=== PATIENT | male | born 1950 | race Caucasian/White ===

== ENCOUNTER 2016-06-23 05:41 | Inpatient (IN) | payer OTHER, MEDICARE ==
[2016-06-23] MEDS ORDERED: LIDOCAINE 1% 5 ML SDV ONE (06:11)
[2016-06-23] MEDS ORDERED: BUPIVACAINE/EPI 0.25% 30 ML SDV ONE (06:33)
[2016-06-23] MEDS ORDERED: THROMBIN (RECOMBINANT) 5,000 UNIT VIAL TP ONE ×2 (06:33→09:44)
[2016-06-23] MEDS ORDERED: BUPIVACAINE 0.25% 30 ML SDV ONE (06:33)
[2016-06-23] MEDS ORDERED: BACITRACIN 50,000 UNITS/10 ML SYR IRR ONE (06:34)
[2016-06-23] MEDS ORDERED: PROPOFOL/EMULSION 500 MG/50 ML BOTTLE IV ONE ×2 (06:54→09:29)
[2016-06-23] MEDS ORDERED: fentaNYL 100 MCG/2 ML INJ ONE ×3 (06:54→11:24)
[2016-06-23] MEDS ORDERED: REMIFENTANIL HCL 1 MG VIAL ONE ×2 (06:54→09:29)
[2016-06-23] MEDS ORDERED: KETAMINE 100 MG/10 ML SYR IVP ONE (06:54)
[2016-06-23] MEDS ORDERED: PHENYLEPHRINE HCL 100 MCG/ML SYR ONE (06:58)
[2016-06-23] MEDS ORDERED: SUCCINYLCHOLINE CHLORIDE*ANESTHESIA ONLY*200 MG/10 ML SYR IVP ONE (06:58)
[2016-06-23] MEDS ORDERED: DEXAMETHASONE 10 MG/ML VIAL IVP ONE (07:00)
[2016-06-23] MEDS ORDERED: ceFAZolin 2 GM/DEXTROSE 100 ML IV ONE (07:00)
[2016-06-23] MEDS ORDERED: CITRATE DEXTROSE SOLN 500 ML BAG ONE (07:04)
[2016-06-23] MEDS ORDERED: MIDAZOLAM 2 MG/2 ML VIAL ONE (07:17)
[2016-06-23] MEDS ORDERED: PHENYLEPHRINE 10 MG/ML SDV ONE ×2 (08:16)
[2016-06-23] MEDS ORDERED: morphINE PF 5 MG/10 ML INJ ONE (08:28)
[2016-06-23] MEDS ORDERED: DEXAMETHASONE 4 MG/ML VIAL ONE (08:47)
[2016-06-23] MEDS ORDERED: ONDANSETRON 4 MG/2 ML VIAL ONE ×2 (08:47→11:17)
[2016-06-23] MEDS ORDERED: SKIN ADHESIVE (DERMABOND) 1 EACH TP ONE ×2 (10:09→10:44)
[2016-06-23] MEDS ORDERED: HYDROmorphONE/DILAUDID 2 MG/ML SYR ONE (10:52)
[2016-06-23] MEDS ORDERED: DIAZEPAM 10 MG/2 ML SYR IVP PRN (11:10)
[2016-06-23] MEDS ORDERED: BISACODYL 10 MG SUPP PR PRN (11:10)
[2016-06-23] MEDS ORDERED: NALOXONE HCL 0.4 MG/ML INJ IVP PRN (11:10)
[2016-06-23] MEDS ORDERED: morphINE PCA 30 MG/30 ML PCA IV PRN (11:10)
[2016-06-23] MEDS ORDERED: ONDANSETRON 4 MG/2 ML VIAL IVP PRN (11:10)
[2016-06-23] MEDS ORDERED: diphenhydrAMINE 25 MG CAP PO PRN (11:10)
[2016-06-23] MEDS ORDERED: LACTULOSE 20 GM/30 ML UDCUP PO PRN (11:10)
[2016-06-23] MEDS ORDERED: MAGNESIUM HYDROXIDE 30 ML UDCUP PO PRN (11:10)
[2016-06-23] MEDS ORDERED: MAG HYDROX/AL HYDROX/SIMETH 30 ML UDCUP PO PRN (11:10)
--- NOTE | 2016-06-23 11:10 | POSTOPPROG ---
Post Op Note Date of Operation: 06/23/16 Surgeon: Tucker Andrea Steam Hammer Operator: Nayeli Anesthesiologist: Yashira Anesthesia: GET(General Endotracheal) Pre-op Diagnosis: Arachnoid cyst-lumbar, L4/5 spondylolisthesis Post-op Diagnosis: same Indication: Leg pain, weakness, Procedure: L1-L5 laminectomy with fenestration of arachnoid cyst Findings: arachnoid cyst. L4/5 spondylolisthesis (with minimal instability) Inf/Abcess present in the surg proc area at time of surgery?: No EBL: 100-500 Complications: none Specimen(s): arachnoid matter dural tissue
[2016-06-23] MEDS ORDERED: NS W/ 20 KCl/L 1,000 ML IV SCH (11:15)
[2016-06-23] MEDS ORDERED: FLUTICASONE NASAL 120 SPRAYS/16 GM MDI EACHNARE PRN (11:17)
[2016-06-23] MEDS ORDERED: NITROGLYCERIN 0.4 MG BTL SL PRN (11:17)
--- NOTE | 2016-06-23 11:24 | SOAPPROG ---
SOAP Progress Note Assessment/Plan: POST OP CHECK: Assessment: Doing well after L1-L5 laminectomy and fenestration of arachnoid cyst Plan: HOB flat x 24 hrs CPM in PACU and transfer to floor per protocol 06/23/16 11:22 Subjective: asleep, wakes easily and reports "mild pain" in left lower back Objective: Neuro: PERRLA speech clear EOMI Follows commands x 4 ODONNELL, sens +LT Vitals: BP: 142/83 HR: 87 O2: 97% ICD10 Worksheet Patient Problems: Problems Problem Status Diagnosed Acute coronary syndrome Active Angina Active CAD - Coronary arteriosclerosis Active Placement of stent in coronary artery Active Anginal equivalent Acute
[2016-06-23] MEDS ORDERED: Alirocumab [Praluent Pen] 75 MG SQ SCH (11:30)
[2016-06-23] MEDS ORDERED: PROMETHAZINE HCL 25 MG/ML VIAL ONE (11:32)
[2016-06-23] MEDS ORDERED: HYDROmorphONE/DILAUDID 1 MG/ML SYR ONE (11:32)
--- NOTE | 2016-06-23 12:53 | GOP ---
[f rep st] OPERATIVE REPORT DATE OF OPERATION: 06/23/2016 SURGEON: Tucker Andrea MD BIOMETRICIAN: PATRICIA Lemos ANESTHESIA: General endotracheal. PREOPERATIVE DIAGNOSIS: 1. Large multilevel lumbar arachnoid cyst. 2. Severe spinal stenosis. 3. Progressive neurologic symptoms. 4. Failed conservative care. POSTOPERATIVE DIAGNOSIS: 1. Large multilevel lumbar arachnoid cyst. 2. Severe spinal stenosis. 3. Progressive neurologic symptoms. 4. Failed conservative care. PROCEDURE PERFORMED: L1 through L5 laminectomies for decompression of spinal canal and intrathecal r emoval/fenestration/open biopsy of arachnoid cyst and scar tissue. FINDINGS: ESTIMATED BLOOD LOSS: 100 cc. INDICATIONS: The patient is a 65-year-old man who has a history of very large extensive arachnoid cy st involving his thoracic spine for which he underwent a multilevel thoracolumbar laminectomy and ope n biopsy/fenestration/resection of the cyst. He presented recently with recurrent symptoms after imp roving after the original surgery. He was found to have a large arachnoid cyst and severe spinal judit nosis in the lumbar spine and presents now for laminectomy with open biopsy/resection/fenestration of the arachnoid cyst. DESCRIPTION OF PROCEDURE: After informed consent was obtained, the patient was taken to the operatin g room and placed in the prone position on the Vik frame. The thoracolumbosacral areas were prepp ed and draped in sterile fashion. After fluoroscopic localization of the correct levels, a midline l inear incision was carried from approximately L1 through L5. This was carried down the fascial layer , which was incised using monopolar electrocautery and carried in a subperiosteal plane along the spi nous processes and lamina bilaterally. Intraoperative fluoroscopy was utilized to verify the correct level. Following this, the dissection was carried down slightly more laterally and the L4-5 level w as first evaluated for instability. The spondylolisthesis was noted and it did not appear to be jaya sly unstable. At the patient's request, we decided to not perform the fusion/instrumentation and to continue with the laminectomy which was then performed in a standard fashion using the SourceTour drill system with a massive fluted bur and Kerrison rongeurs along with the straight and angled curettes. There was a fairly significant amount of scar tissue at the upper levels where the prior surgery was performed and this was very meticulously dissected down under high-power microscopy. After careful e xposure of the dura from approximately T12 through L5 with the redo laminectomies up higher at the T1 1-12 area, the dura was then opened centrally and tacked laterally with 4-0 Nurolon sutures. A very thick tubular arachnoid cyst with severe compression of the nerve roots was noted and was carefully o pened using the 11 blade scalpel and this incision in the very thickened tenacious cyst released a la rge amount of high-pressure spinal fluid. This was extended all the way up to the prior fenestration area up in the T11-12 area, and the cyst was widely fenestrated and multiple large pieces resected. After extensively opening up all of the multi lobulated cystic areas, the wound was copiously irriga kwan and meticulous hemostasis was achieved. The dura was then closed with a running 5-0 Prolene sutu re followed by Gelfoam over the suture line. Meticulous hemostasis was achieved and the wound was co piously irrigated with antibiotic irrigation and closed in a layered fashion using interrupted Vicryl sutures followed by Dermabond on the skin. COMPLICATIONS: None. DISPOSITION: The patient was extubated and transferred to the recovery room in stable condition. /[id number]/MODL
[2016-06-23] MEDS ORDERED: METHOCARBAMOL 750 MG TAB ONE (13:56)
[2016-06-23] MEDS ORDERED: OXYCODONE/APAP 5/325 TAB ONE (13:56)
[2016-06-23] MEDS ORDERED: CEFAZOLIN 1 GM/DEXTROSE/50 ML BAG IV ONE (13:56)
[2016-06-23] MEDS: METHOCARBAMOL 750 MG TAB PO PRN (14:32)
[2016-06-23] MEDS: OXYCODONE/APAP 5/325 TAB PO PRN ×3 (14:33→22:00)
--- NOTE | 2016-06-23 15:01 | DX ---
Intraoperative Fluoroscopy of the Lower Lumbar Spine Clinical History: 65-year-old male presenting for lumbar dural cyst removal. Findings: Dr. Tucker Andrea used 4.2 seconds of fluoroscopy time, with an exposure dose of 3.28 mGy. A localizing needle has been placed over the soft tissues posteriorly at the L4-L5 level. The re is advanced degenerative disk space narrowing at L4-L5, with an anterolisthesis. Impression: Intraoperative fluoroscopy of the lower lumbar spine.
[2016-06-23] MEDS: POLYETHYLENE GLYCOL 3350 17 GM PKT PO SCH (18:02)
[2016-06-23] MEDS: morphINE SR 15 MG TAB PO SCH (21:14)
[2016-06-24] MEDS: SENNOSIDES/DOCUSATE SODIUM TAB PO SCH ×3 (00:08→22:09)
[2016-06-24] MEDS: POLYETHYLENE GLYCOL 3350 17 GM PKT PO SCH ×4 (00:08→22:09)
[2016-06-24] MEDS: ONDANSETRON DISINTEGRATING 4 MG TAB PO PRN ×3 (00:12→23:47)
[2016-06-24] MEDS: METHOCARBAMOL 750 MG TAB PO PRN (01:48)
[2016-06-24] MEDS: OXYCODONE/APAP 5/325 TAB PO PRN ×2 (04:50→16:14)
[2016-06-24 05:24] LABS: % IMMATURE GRANULYOCYTES 0.6 % (0.0-1.1); ABSOLUTE IMMATURE GRANULOCYTES 0.07 10^3/uL (0.00-0.10); ADD DIFF? NO; ADD MORPH? NO; ADD SCAN? NO; ATYPICAL LYMPHOCYTE FLAG 0 (0-99); FRAGMENT RBC FLAG 0 (0-99); HEMATOCRIT 43.4 % (40.0-51.0); HEMOGLOBIN 14.9 g/dL (13.7-17.5); LEFT SHIFT FLG 0 (0-99); LIPEMIA HEMOLYSIS FLAG 90 (0-99); MEAN CELL HEMOGLOBIN 32.3 pg (27.9-34.1); MEAN CELL HEMOGLOBIN CONCENTR. 34.3 g/dL (32.4-36.7); MEAN CELL VOLUME 94.1 fL (81.5-99.8); MEAN PLATELET VOLUME 9.1 fL (8.7-11.7); PLATELET CLUMPS FLAG 10 (0-99); PLATELET COUNT 168 10^3/uL (150-400); RED BLOOD CELL COUNT 4.61 10^6/uL (4.40-6.38); RED CELL DISTRIBUTION WIDTH 13.7 % (11.5-15.2)
[2016-06-24 05:40] LABS: ANION GAP 7 mEq/L (8-16); CARBON DIOXIDE 25 mEq/l (22-31); CHLORIDE 107 mEq/L (97-110); GLOMERULAR FILTRATION RATE > 60; GLUCOSE 221 mg/dL (70-100); POTASSIUM 4.7 mEq/L (3.5-5.2); SODIUM 139 mEq/L (134-144)
[2016-06-24] MEDS: ENOXAPARIN 40 MG/0.4 ML SYR SC SCH (07:52)
[2016-06-24] MEDS: PANTOPRAZOLE SODIUM 40 MG TAB PO SCH (07:53)
[2016-06-24] MEDS: morphINE SR 15 MG TAB PO SCH ×3 (07:53→23:47)
[2016-06-24] MEDS: DIAZEPAM 5 MG TAB PO PRN ×2 (07:53→11:56)
[2016-06-24] MEDS: glipiZIDE XL 5 MG TAB PO SCH (09:46)
--- NOTE | 2016-06-24 11:11 | NEUSURGPN ---
Date of Surgery: 06/23/16 Post Op Day: 1 Assessment/Plan: : Assessment: POD #1 Doing well after L1-L5 laminectomy and fenestration of arachnoid cyst HOB flat for 24 hrs from surgery Plan: HOB flat x 24 hrs. DC kc when bed rest restrictions lifted and advance activity as tolerated Ok to Restart Plavix/ASA on POD #3 (Jun 26, 2016) per Dr. Mota Subjective: lying flat in bed, Doing fine, pain well controlled Denies new numbness or tingling Objective: Incision: CDI, no SELMA Neuro: ODONNELL, sens + LT Catheter Insertion Date: 06/23/16 Neurosurgery Physical Exam - Vitals, I&O, Labs I and O 06/23/16 06/24/16 06/25/16 05:59 05:59 05:59 Intake Total 4560 Output Total 2400 Balance 2160 Weight 89.81 kg Intake: Oral (ml) 1600 IV Intake (ml) 1700 IV Infused (ml) 1125 ceFAZolin 2 GM/DEXTROSE 100 100 ml @ 200 mls/hr IV ONCALL ONE Rx#:[id number] ceFAZolin 1 GM/DEXTROSE 100 50 ml @ 200 mls/hr IV Q8H [facility] Rx#:[id number] NS W/ 20 KCl/L 1,000 ml @ 925 75 mls/hr IV CONT [facility] Rx #:[id number] Autologous Blood (ml) 135 Output: Urine (ml) 2200 Catheter 2200 Estimated Blood Loss (ml) 200 Other: Intake Quantity Yes Sufficient Vital Signs Temp Pulse Resp BP Pulse Ox 36.9 C 87 18 108/57 L 95 06/24/16 07:19 06/24/16 07:19 06/24/16 07:19 06/24/16 07:19 06/24/16 07:19 Laboratory Results 06/24/16 04:50 06/24/16 04:50 ICD10 Worksheet Patient Problems: Problems Problem Status Diagnosed Acute coronary syndrome Active Angina Active CAD - Coronary arteriosclerosis Active Placement of stent in coronary artery Active Anginal equivalent Acute
[2016-06-24] MEDS: ACETAMINOPHEN 325 MG TAB PO PRN (22:09)
[2016-06-25] MEDS: OXYCODONE/APAP 5/325 TAB PO PRN ×3 (05:53→14:08)
[2016-06-25] MEDS: glipiZIDE XL 5 MG TAB PO SCH (09:37)
[2016-06-25] MEDS: morphINE SR 15 MG TAB PO SCH ×2 (09:38→20:04)
[2016-06-25] MEDS: SENNOSIDES/DOCUSATE SODIUM TAB PO SCH ×2 (09:38→20:03)
[2016-06-25] MEDS: PANTOPRAZOLE SODIUM 40 MG TAB PO SCH (09:38)
[2016-06-25] MEDS: POLYETHYLENE GLYCOL 3350 17 GM PKT PO SCH ×3 (09:38→20:04)
[2016-06-25] MEDS: ENOXAPARIN 40 MG/0.4 ML SYR SC SCH (09:40)
--- NOTE | 2016-06-25 09:50 | NEUSURGPN ---
Assessment/Plan: Assessment: POD #2 Doing well after L1-L5 laminectomy and fenestration of arachnoid cyst Plan: Optmize pain management PT/OT Monitor incision, if leakage dose not slo down may need to over sew tomorrow Ok to Restart Plavix/ASA on POD #3 (Jun 26, 2016) per Dr. Valdes. Discussed with Dr. Valdes, please notify NS with any change in neuro/motor exam Subjective: low back pain tolerable with mediations. Denies any new leg pain numbness, tingling or weakness. Objective: NAD A&Ox3 MAEx4 5/5 and equla in BUE and BLE. Incision with sanguinous drainage on dressing. Incision flat Catheter Insertion Date: 06/23/16 - Physician Discussed Patient with : Emre Neurosurgery Physical Exam - Vitals, I&O, Labs I and O 06/24/16 06/25/16 06/26/16 05:59 05:59 05:59 Intake Total 4560 1600 Output Total 2400 1175 425 Balance 2160 425 -425 Weight 89.81 kg Intake: Oral (ml) 1600 1600 IV Intake (ml) 1700 IV Infused (ml) 1125 ceFAZolin 2 GM/DEXTROSE 100 100 ml @ 200 mls/hr IV ONCALL ONE Rx#:[id number] ceFAZolin 1 GM/DEXTROSE 100 50 ml @ 200 mls/hr IV Q8H [facility] Rx#:[id number] NS W/ 20 KCl/L 1,000 ml @ 925 75 mls/hr IV CONT [facility] Rx #:[id number] Autologous Blood (ml) 135 Output: Urine (ml) 2200 1175 425 Catheter 2200 550 Urinal 625 425 Estimated Blood Loss (ml) 200 Other: Intake Quantity Yes Yes Sufficient Number of Voids Urinal 2 1 Bladder Scan Volume (ml) Urinal 450 Vital Signs Temp Pulse Resp BP Pulse Ox 37.1 C 90 16 121/70 H 89 L 06/25/16 07:58 06/25/16 07:58 06/25/16 07:58 06/25/16 07:58 06/25/16 07:58 Laboratory Results 06/24/16 04:50 06/24/16 04:50 ICD10 Worksheet Patient Problems: Problems Problem Status Diagnosed Acute coronary syndrome Active Angina Active CAD - Coronary arteriosclerosis Active Placement of stent in coronary artery Active Anginal equivalent Acute
[2016-06-25] MEDS: ONDANSETRON DISINTEGRATING 4 MG TAB PO PRN ×2 (15:09→18:26)
[2016-06-25] MEDS: ACETAMINOPHEN 325 MG TAB PO PRN (20:03)
[2016-06-26] MEDS: ACETAMINOPHEN 325 MG TAB PO PRN (05:59)
[2016-06-26] MEDS: PANTOPRAZOLE SODIUM 40 MG TAB PO SCH (07:44)
[2016-06-26] MEDS: SENNOSIDES/DOCUSATE SODIUM TAB PO SCH ×2 (07:44→20:24)
[2016-06-26] MEDS: glipiZIDE XL 5 MG TAB PO SCH (07:44)
[2016-06-26] MEDS: ENOXAPARIN 40 MG/0.4 ML SYR SC SCH (07:45)
[2016-06-26] MEDS: POLYETHYLENE GLYCOL 3350 17 GM PKT PO SCH ×3 (08:29→20:23)
[2016-06-26] MEDS: morphINE SR 15 MG TAB PO SCH ×2 (08:29→20:23)
--- NOTE | 2016-06-26 09:20 | NEUSURGPN ---
Assessment/Plan: Assessment: POD #3 Doing well after L1-L5 laminectomy and fenestration of arachnoid cyst Plan: - Optmize pain management - he does not want narcotics because it makes him feel sick and only wants tylenol - PT/OT - monitor incision, leakage has stopped overnight - was a lot yesterday but this morning have been dry for about 2.5 hours - nursing to monitor and may need to oversewn tomorrow - restart Plavix/ASA today per Dr. Mota Subjective: low back pain tolerable with medications. Denies any new leg pain numbness, tingling or weakness; feels like "crap" from his pain medications Objective: NAD A&Ox3 MAEx4 5/5 and equal in BUE and BLE. Incision flat and completely dry this morning (dry for about 2.5 hours) with no active leaking and no erythema Urinary Catheter in Place: No Catheter Insertion Date: 06/23/16 Neurosurgery Physical Exam - Vitals, I&O, Labs I and O 06/25/16 06/26/16 06/27/16 05:59 05:59 05:59 Intake Total 1600 1400 Output Total 1175 1425 Balance 425 -25 Intake: Oral (ml) 1600 1400 Output: Urine (ml) 1175 1425 Catheter 550 Urinal 625 875 Toilet 550 Other: Intake Quantity Yes Sufficient Number of Voids Urinal 2 1 Toilet 3 Number of Stools Toilet 0 Bladder Scan Volume (ml) Urinal 450 Vital Signs Temp Pulse Resp BP Pulse Ox 36.5 C 92 15 122/74 H 90 L 06/26/16 07:52 06/26/16 07:52 06/26/16 07:52 06/26/16 07:52 06/26/16 07:52 Laboratory Results 06/24/16 04:50 06/24/16 04:50 ICD10 Worksheet Patient Problems: Problems Problem Status Diagnosed Acute coronary syndrome Active Angina Active CAD - Coronary arteriosclerosis Active Placement of stent in coronary artery Active Anginal equivalent Acute
[2016-06-26] MEDS: OXYCODONE/APAP 5/325 TAB PO PRN ×2 (14:25→20:21)
[2016-06-26] MEDS: CLOPIDOGREL BISULFATE 75 MG TAB PO SCH (15:53)
[2016-06-26] MEDS: ASPIRIN 81 MG CHEWABLE TAB PO SCH (15:53)
[2016-06-27] MEDS: OXYCODONE/APAP 5/325 TAB PO PRN ×4 (01:15→14:04)
[2016-06-27] MEDS: morphINE SR 15 MG TAB PO SCH (08:25)
[2016-06-27] MEDS: POLYETHYLENE GLYCOL 3350 17 GM PKT PO SCH ×2 (08:25→08:45)
[2016-06-27] MEDS: SENNOSIDES/DOCUSATE SODIUM TAB PO SCH (08:31)
[2016-06-27] MEDS: glipiZIDE XL 5 MG TAB PO SCH (08:31)
[2016-06-27] MEDS: ASPIRIN 81 MG CHEWABLE TAB PO SCH (08:31)
[2016-06-27] MEDS: CLOPIDOGREL BISULFATE 75 MG TAB PO SCH (08:31)
[2016-06-27] MEDS: ENOXAPARIN 40 MG/0.4 ML SYR SC SCH (08:32)
[2016-06-27] MEDS: PANTOPRAZOLE SODIUM 40 MG TAB PO SCH (08:37)
[2016-06-27 08:43] VITALS: RESP 16
[2016-06-27] MEDS ORDERED: TESTOSTERONE IM 100 MG/ML SYRINGE IM SCH (09:00)
[2016-06-27] MEDS: ONDANSETRON DISINTEGRATING 4 MG TAB PO PRN (09:52)
--- NOTE | 2016-06-27 10:34 | NEUSURGPN ---
Assessment/Plan: Assessment: POD #4 Doing well after L1-L5 laminectomy and fenestration of arachnoid cyst Plan: - Optimize pain management-doing well with current regiment - PT/OT - monitor incision, dry and clean - On Plavix/ASA per Dr. Mota -Please notify NS with any change in neuro/motor exam Subjective: Bilateral hip ache and some lower incisional pain. Denies any incisional leakage Objective: NAD A&Ox3 MAEx4, 5/5 and equal in BUE and BLE. Incision c/d/i Catheter Insertion Date: 06/23/16 - Physician Discussed Patient with DrLitzy: Lex Neurosurgery Physical Exam - Vitals, I&O, Labs I and O 06/26/16 06/27/16 06/28/16 05:59 05:59 05:59 Intake Total 1400 500 Output Total 1425 850 200 Balance -25 -350 -200 Intake: Oral (ml) 1400 500 Output: Urine (ml) 1425 850 200 Urinal 875 600 200 Toilet 550 250 Other: Number of Voids Urinal 1 Toilet 3 1 Number of Stools Toilet 0 Vital Signs Temp Pulse Resp BP Pulse Ox 36.4 C 106 H 16 139/76 H 91 L 06/27/16 08:41 06/27/16 08:41 06/27/16 08:41 06/27/16 08:41 06/27/16 08:41 Laboratory Results 06/24/16 04:50 06/24/16 04:50 ICD10 Worksheet Patient Problems: Problems Problem Status Diagnosed Acute coronary syndrome Active Angina Active CAD - Coronary arteriosclerosis Active Placement of stent in coronary artery Active Anginal equivalent Acute
[2016-06-27 15:38] VITALS: BP 114/67; PULSE 77; TEMP 98.2; O2SAT 92
== END 2016-06-27 15:44 | disposition home or self-care (01) | DRG 30 ==
LOC: F3N 05:41
PROVIDERS: ADMIT Neurological Surgery; ATTEND Neurological Surgery
PROC: 00BY0ZX Excision of Lumbar Spinal Cord, Open Approach, Diagnostic (ICD-10-PCS; principal; 2016-06-23 07:15)
PROC: 01NB0ZZ Release Lumbar Nerve, Open Approach (ICD-10-PCS; principal; 2016-06-23 07:15)
DX: G96.19 Other disorders of meninges, not elsewhere classified (principal); M43.16 Spondylolisthesis, lumbar region; E11.9 Type 2 diabetes mellitus without complications; I25.10 Atherosclerotic heart disease of native coronary artery without angina pectoris; Z95.5 Presence of coronary angioplasty implant and graft
CPT/HCPCS: 97001-GP; 97003-GO; 97116-GP; 97530-GP; 97535-GO; G8978-GP-CJ; G8979-GP-CI; G8987-GO-CL; G8988-GO-CI; G8989-GO-CI; J0330; J0690; J1071; J1100; J1170; J1650; J2250; J2274; J2370; J2405; J2550; J2704; J3010; J7060

== ENCOUNTER → 2016-08-09 | Outpatient (CLI) | payer OTHER, MEDICARE | LOC: BMCIMAGING 16:41 | PROVIDERS: ATTEND Physician Assistant Surgical | DX: M50.31 Other cervical disc degeneration, high cervical region (principal) ==

== ENCOUNTER → 2016-09-10 | Outpatient (CLI) | payer OTHER, MEDICARE ==
[~2016-09-10] MED LIST: GADOBUTROL 10 ML VIAL IVP ONE
== END ==
LOC: FIMAGING 13:56
PROVIDERS: ATTEND Physical Medicine & Rehabilitation Neuromuscular Medicine
DX: Z98.1 Arthrodesis status (principal); M47.896 Other spondylosis, lumbar region; M43.16 Spondylolisthesis, lumbar region; M53.2X6 Spinal instabilities, lumbar region; M46.96 Unspecified inflammatory spondylopathy, lumbar region
CPT/HCPCS: 72110; 72158; A9585

== ENCOUNTER → 2016-12-30 | Outpatient (CLI) | payer OTHER, MEDICARE ==
[~2016-12-30] MED LIST changes: -GADOBUTROL 10 ML VIAL IVP ONE; +IOPAMIDOL (ISOVUE-300) 100 ML BTL ONE
== END ==
LOC: FIMAGING 13:44
PROVIDERS: ATTEND Family Medicine
DX: K57.30 Diverticulosis of large intestine without perforation or abscess without bleeding (principal); N20.0 Calculus of kidney; N40.0 Benign prostatic hyperplasia without lower urinary tract symptoms
CPT/HCPCS: 74177; Q9967

== ENCOUNTER 2017-01-03 10:21 | Inpatient (IN) | payer OTHER, MEDICARE ==
[~2017-01-03 10:21] MED LIST changes: +BACITRACIN 50,000 UNITS/10 ML SYR IRR ONE; +BUPIVACAINE 0.25% 30 ML SDV ONE; +BUPIVACAINE/EPI 0.25% 30 ML SDV ONE; +CITRATE DEXTROSE SOLN 500 ML BAG ONE; -IOPAMIDOL (ISOVUE-300) 100 ML BTL ONE; +THROMBIN (BOVINE) 20,000 UNIT VIAL TP ONE; +ceFAZolin 2 GM/DEXTROSE 100 ML IV ONE; +fentaNYL 100 MCG/2 ML INJ IT ONE; +morphINE PF 5 MG/10 ML INJ IT ONE
[2017-01-03] MEDS ORDERED: CEFAZOLIN 2 GM/DEXTROSE/100 ML BAG IV ONE (11:43)
[2017-01-03] MEDS ORDERED: fentaNYL 100 MCG/2 ML INJ ONE ×5 (11:51→15:51)
[2017-01-03] MEDS ORDERED: PROPOFOL/EMULSION 500 MG/50 ML BOTTLE IV ONE ×2 (11:51→14:23)
[2017-01-03] MEDS ORDERED: ROCURONIUM 50 MG/5 ML VIAL ONE (11:52)
--- NOTE | 2017-01-03 12:29 | PDANEPAE ---
ANE History of Present Illness L4-5 decompression and fusion ANE Past Medical History - Cardiovascular History Hx Hypertension: No Hx Arrhythmias: No Hx Chest Pain: No Hx Coronary Artery / Peripheral Vascular Disease: Yes Hx CHF / Valvular Disease: No Hx Palpitations: No Cardiovascular History Comment: STENTS X 4 MOST RECENT 12/2013 - Pulmonary History Hx COPD: No Hx Asthma/Reactive Airway Disease: No Hx Recent Upper Respiratory Infection: No Hx Oxygen in Use at Home: No Hx Sleep Apnea: No Sleep Apnea Screening Result - Last Documented: Negative - Neurologic History Hx Cerebrovascular Accident: No Hx Seizures: No Hx Dementia: No Neurologic History Comment: "foggy", some difficulty with short term memory for about 6 months - Endocrine History Hx Diabetes: Yes Endocrine History Comment: NIDDM x 6 years - Renal History Hx Renal Disorders: Yes Renal History Comment: HAS HX OF KIDNEY STONES. CURRENTLY 2 RT KIDNEY CYSTS - Liver History Hx Hepatic Disorders: Yes Hepatic History Comment: HEPATIC STENOSIS - Neurological & Psychiatric Hx Hx Neurological and Psychiatric Disorders: Yes Neurological / Psychiatric History Comment: ANXIETY in past - Cancer History Hx Cancer: No - Congenital Disorder History Hx Congenital Disorders: Yes Congenital History Comment: SPONDOLYOSIS LUMBAR - GI History GERD: no Hx Gastrointestinal Disorders: Yes Gastrointestinal History Comment: ULCER 1976. CYANIDE POISIONING EFECTECTED TOP OF ESOPHAGUS. H.Pylori infection recently - Other Health History Other Health History: THORACIC CYST. BEG CATARACTS - Chronic Pain History Chronic Pain: Yes (THORACIC SPINE) - Surgical History Prior Surgeries: MULTIPLKE LAMINECTOMY 12/2014. VENTRAL HERNIA X3. APPENDECTOMY. IZABELLA. RONA KNEE SCOPE. RT ELBOW ANE Review of Systems - Exercise capacity METS (RN): 4 METS ANE Patient History - Allergies Allergies/Adverse Reactions: levofloxacin [Levofloxacin] Allergy (Severe, Verified 12/23/16 16:58) Other-Enter Comments sertraline [Sertraline] Allergy (Severe, Verified 12/23/16 16:58) Other-Enter Comments Cqwxroo-Doj-Rva Reductase Inhibitor Allergy (Severe, Verified 12/23/16 16:58) Other-Enter Comments ketorolac [Ketorolac] Allergy (Mild, Verified 12/23/16 16:58) Rash clarithromycin [From Biaxin] Allergy (Unknown, Verified 12/23/16 16:58) ropinirole HCl [From Requip] Allergy (Unknown, Verified 12/23/16 16:58) Other-Enter Comments celecoxib [From Celebrex] Allergy (Verified 12/28/16 12:08) Quinolones Allergy (Verified 12/28/16 12:08) HART 2 INHIBITORS Allergy (Unknown, Uncoded 06/19/14 08:33) Other-Enter Comments fluoroquinolones Allergy (Unknown, Uncoded 06/19/14 08:33) - Home Medications Home Medications: Testosterone IM [Testosterone 100mg/ml IM inj (*)] 200 mg IM MO 12/11/14 [Last Taken 06/19/16] glipiZIDE [Glipizide ER] 5 mg PO DAILY 12/11/14 [Last Taken 06/22/16] Nitroglycerin [Nitrostat 0.4 mg (*)] 0.4 mg SL Q5M PRN 03/22/16 [Last Taken ] Aspirin [Aspirin 81mg (*)] 81 mg PO DAILY 05/24/16 [Last Taken 06/13/16] Lansoprazole [Prevacid] 15 mg PO DAILY 05/24/16 [Last Taken 06/22/16] Herbals/Supplements -Info Only 1 ea PO DAILY 12/22/16 [Last Taken Unknown] oxyCODONE/APAP 5/325 [Percocet 5/325 (*)] 1 tab PO DAILY PRN 12/22/16 [Last Taken Unknown] - NPO status NPO Since - Liquids (Date): 01/03/17 NPO Since - Liquids (Time): 02:00 NPO Since - Solids (Date): 01/02/17 NPO Since - Solids (Time): 22:30 - Anes Hx Hx Anesthesia Complications (with details): pt. reports L facial numbness and agitation postop x 1 - Smoking Hx Smoking Status: Never smoked Marijuana use: Yes - Alcohol Use Alcohol Use: None - Family Anes Hx Family Anes Hx: none ANE Labs/Vital Signs - Vital Signs Blood Pressure: 144/74 Heart Rate: 80 Respiratory Rate: 18 O2 Sat (%): 95 Height: 179.07 cm Weight: 86.636 kg ANE Physical Exam - Airway Neck exam: FROM Mallampati Score: Class 3 Mouth exam: normal dental/mouth exam - Pulmonary Pulmonary: clear to auscultation - Cardiovascular Cardiovascular: regular rate and rhythym
[2017-01-03] MEDS ORDERED: MIDAZOLAM 2 MG/2 ML VIAL IVP ONE (12:38)
[2017-01-03] MEDS ORDERED: KETAMINE 100 MG/10 ML SYR ONE (12:51)
[2017-01-03] MEDS ORDERED: BUPIVACAINE/EPI 0.25% 30 ML SDV ONE (13:11)
[2017-01-03] MEDS ORDERED: DEXAMETHASONE 4 MG/ML VIAL ONE ×3 (13:42→13:43)
[2017-01-03] MEDS ORDERED: epHEDrine SULFATE 10 MG/ML SYR ONE (14:27)
[2017-01-03] MEDS ORDERED: morphINE PF 10 MG/10 ML INJ ONE (15:41)
[2017-01-03] MEDS ORDERED: ONDANSETRON 4 MG/2 ML VIAL ONE ×2 (16:03→17:14)
[2017-01-03] MEDS ORDERED: fentaNYL 100 MCG/2 ML INJ IVP PRN (16:13)
[2017-01-03] MEDS ORDERED: NALOXONE HCL 0.4 MG/ML INJ IVP PRN (16:13)
[2017-01-03] MEDS ORDERED: HYDROmorphONE/DILAUDID 1 MG/ML SYR IVP PRN (16:13)
[2017-01-03] MEDS ORDERED: ceFAZolin 1 GM VIAL ONE (16:15)
[2017-01-03] MEDS ORDERED: PROPOFOL 200 MG/20 ML VIAL ONE (16:19)
[2017-01-03] MEDS ORDERED: LACTULOSE 20 GM/30 ML UDCUP PO PRN (16:50)
[2017-01-03] MEDS ORDERED: BISACODYL 10 MG SUPP PR PRN (16:50)
[2017-01-03] MEDS ORDERED: ONDANSETRON DISINTEGRATING 4 MG TAB PO PRN (16:50)
[2017-01-03] MEDS ORDERED: oxyCODONE IR 5 MG TAB PO PRN (16:50)
[2017-01-03] MEDS ORDERED: MAGNESIUM HYDROXIDE 30 ML UDCUP PO PRN (16:50)
[2017-01-03] MEDS ORDERED: METHOCARBAMOL 750 MG TAB PO PRN (16:50)
[2017-01-03] MEDS ORDERED: NITROGLYCERIN 0.4 MG BTL SL PRN (16:57)
--- NOTE | 2017-01-03 17:04 | POSTANESTH ---
Post Anesthetic Evaluation Cardiovascular Status: Similar to Pre-Op Cond Respiratory Status: Normal, Stable Level of Consciousness/Mental Status: Can Participate in Eval Pain Control: Adequate, Prn Tx Ordered Nausea/Vomiting Control: Adequate, Prn Tx Ordered Complications Possibly Related to Anesthesia: None Noted
--- NOTE | 2017-01-03 17:10 | POSTOPPROG ---
Post Op Note Date of Operation: 01/03/17 Surgeon: Tucker Andrea Audio Operator: Nayeli Anesthesiologist: Tejas Sy Anesthesia: GET(General Endotracheal) Pre-op Diagnosis: Lumbar DJD/stenosis/spondylolisthesis L4/5 Post-op Diagnosis: same Indication: stenosis, bilateral leg pain Procedure: L4/5 TLIF Findings: stenosis Inf/Abcess present in the surg proc area at time of surgery?: No EBL: 100-500 Complications: none Drains: Praveen Velarde (to bulb suction)
--- NOTE | 2017-01-03 17:13 | SOAPPROG ---
SOAP Progress Note Assessment/Plan: Assessment: post op check doing well after L4/5 TLIf Plan: CPM in PACU SELMA to bulb suction transfer to floor per protocol 01/03/17 17:10 Subjective: awake, alert, doing well Objective: Vital Signs Temp Pulse Resp BP Pulse Ox 37.8 C 80 18 144/74 H 95 01/03/17 10:39 01/03/17 12:38 01/03/17 12:38 01/03/17 12:38 01/03/17 12:38 Vital BP:131/67 HR: 85 O2:97% Neuro: ODONNELL, sens +LT follows commands ICD10 Worksheet Patient Problems: Problems Problem Status Onset Acute coronary syndrome Active Angina Active CAD - Coronary arteriosclerosis Active Placement of stent in coronary artery Active Anginal equivalent Acute
[2017-01-03] MEDS: ONDANSETRON 4 MG/2 ML VIAL IVP PRN (17:26)
[2017-01-03] MEDS: TRANEXAMIC ACID 650 MG in NS 100 ML IV ONE ×2 (17:30→17:40)
[2017-01-03] MEDS: SENNOSIDES/DOCUSATE SODIUM TAB PO SCH (20:05)
[2017-01-03] MEDS: morphINE SR 15 MG TAB PO SCH (20:05)
[2017-01-03] MEDS: CEFUROXIME 1,500 MG in NS 50 ML IV SCH (20:05)
[2017-01-03] MEDS: FAMOTIDINE 20 MG TAB PO SCH (20:05)
[2017-01-03] MEDS ORDERED: SCOPOLAMINE HYDROBROMIDE 1.5 MG PATCH TD ONE (20:28)
[2017-01-03] MEDS ORDERED: NS 1,000 ML IV SCH (20:30)
[2017-01-03] MEDS: PROMETHAZINE HCL 25 MG/ML INJ IVP PRN (21:28)
[2017-01-03] MEDS: POLYETHYLENE GLYCOL 3350 17 GM PKT PO SCH (21:50)
[2017-01-03] MEDS: CLARITHROMYCIN 500 MG TAB PO SCH (21:50)
[2017-01-03] MEDS: ACETAMINOPHEN 500 MG TAB PO SCH (21:52)
[2017-01-04] MEDS: ONDANSETRON 4 MG/2 ML VIAL IVP PRN (02:16)
--- NOTE | 2017-01-04 03:52 | GOP ---
[f rep st] OPERATIVE REPORT DATE OF OPERATION: 01/03/2017 SURGEON: Tucker Andrea MD NEUROSURGEON: Tucker Andrea MD. CAR CUSTOMIZER: PATRICIA Lemos. ANESTHESIA: General endotracheal. PREOPERATIVE DIAGNOSIS: Severe L4-5 degenerative joint disease and spondylolisthesis with instabili ty. Intractable low back pain and bilateral lower extremity radiculopathy. Failed conservative car e. POSTOPERATIVE DIAGNOSIS: Severe L4-5 degenerative joint disease and spondylolisthesis with instabil ity. Intractable low back pain and bilateral lower extremity radiculopathy. Failed conservative ca re. PROCEDURE PERFORMED: Redo L4-5 laminectomy and bilateral transpedicular decompressions bilaterally with L4-5 posterior nonsegmental (pedicle screw) fixation and posterolateral fusion with local autog raft and bone morphogenic protein. L4-5 posterior/transforaminal lumbar interbody fusion with 2 str uctural PEEK interbody spacers, local autograft and bone morphogenic protein for an L4-5 posterior/t ransforaminal lumbar interbody fusion. Use of intraoperative microscopy, fluoroscopy, and computer volumetric stereotactic navigation with intraoperative neurophysiologic testing. Injection of intra thecal narcotic analgesics and subcutaneous and intramuscular local anesthesia. FINDINGS: ESTIMATED BLOOD LOSS: 250 cc. INDICATIONS: The patient is a 66-year-old man with an extensive past medical and surgical history i ncluding arachnoid cyst causing spinal cord and nerve root compression extending from T4 down to L5 for which he has had extensive laminectomies and fenestration of the cyst. He presents now with int ractable low back pain and bilateral lower extremity radicular symptoms secondary to L4-5 instabilit y and severe lateral recess stenosis with critical neural foraminal impingement at the L4 level. Af ter failing conservative care, he presents now for surgical decompression and stabilization. DESCRIPTION OF PROCEDURE: After informed consent was obtained, the patient was taken to the operati ng room and placed in a prone position on the Praveen table. The lumbosacral area was prepped and d raped in a sterile fashion. After fluoroscopic localization of correct levels, the subcutaneous and intramuscular tissues were infiltrated with local anesthesia. A midline linear incision was then c reated over the L4-5 spinous processes. This was carried down the fascial layer which was incised u sing the monopolar electrocautery and carried in a subperiosteal plane along the spinous processes a nd lamina bilaterally. Intraoperative fluoroscopy was again utilized to verify the correct levels. Note that there were no spinous processes at L4-5 and the spinous processes I am referring to are a t S1. The incision had to be extended slightly inferiorly/caudally and the S1 spinous process was i dentified and the dissection carried down along this normal anatomic landmark and out the lamina and then rostrally into the L4-5 level. There were no normal tissues at the L4-5 level with very hyper trophied arthritic facet joints and severe spinal stenosis which required meticulous dissection and extensive drilling. Because the normal anatomy was so difficult to identify, the O-arm neuronavigat ional system was brought in and 3-D reconstructed images obtained. Using computer volumetric stereo tactic navigation, pedicle screws were placed at L4 and L5 in a standard fashion. Each individual s crew was tested neurophysiologically with monopolar electrostimulation and interpretation of the pot entials by the surgeon. Rods were then placed and secured under distraction, during which time comp lete facetectomies were performed bilaterally. This was necessary in order to adequately decompress the central canal and neural foramina and lateral recesses without causing a CSF leak. The neuro f oramen at L4 were extensively unroofed and decompressed. Following this, a complete diskectomy was performed at the L4-5 level. Preparation of the endplates and placement of 2 structural PEEK interb reji spacers, local autograft and bone morphogenic protein for an L4-5 posterior/transforaminal lumba r interbody fusion. The screw and karen system were then placed in a slight amount of compression to facilitate bony union and to minimize the potential for posterior graft migration. The wound was ag ain copiously irrigated and meticulous hemostasis was achieved. The foramina were reinspected under high-power microscopy in order to adequately insure they were decompressed. 200 mcg of Duramorph a long with 50 mcg of fentanyl were injected intrathecally. The remaining transverse processes were t hen decorticated. The residual local autograft along with bone morphogenic protein were placed out laterally for posterolateral fusion at the L4-5 level. The subcutaneous and intramuscular tissues w ere re-infiltrated with local anesthesia. A drain was placed and the wound was closed in layered fa shion using interrupted Vicryl sutures followed by Steri-Strips on the skin. COMPLICATIONS: None. DISPOSITION: The patient is currently in the process of being repositioned for extubation. /[id number]/MODL
[2017-01-04] MEDS: CEFUROXIME 1,500 MG in NS 50 ML IV SCH (04:02)
[2017-01-04] MEDS: PROMETHAZINE HCL 25 MG/ML INJ IVP PRN (04:06)
[2017-01-04] MEDS: ACETAMINOPHEN 500 MG TAB PO SCH ×3 (04:36→21:15)
[2017-01-04 05:19] LABS: % IMMATURE GRANULYOCYTES 0.7 % (0.0-1.1); ABSOLUTE IMMATURE GRANULOCYTES 0.07 10^3/uL (0.00-0.10); ADD DIFF? NO; ADD MORPH? NO; ADD SCAN? NO; ATYPICAL LYMPHOCYTE FLAG 0 (0-99); FRAGMENT RBC FLAG 0 (0-99); HEMATOCRIT 45.4 % (40.0-51.0); HEMOGLOBIN 14.3 g/dL (13.7-17.5); LEFT SHIFT FLG 10 (0-99); LIPEMIA HEMOLYSIS FLAG 80 (0-99); MEAN CELL HEMOGLOBIN 31.5 pg (27.9-34.1); MEAN CELL HEMOGLOBIN CONCENTR. 31.5 g/dL (32.4-36.7); MEAN PLATELET VOLUME 9.8 fL (8.7-11.7); PLATELET CLUMPS FLAG 40 (0-99); PLATELET COUNT 81 10^3/uL (150-400); RED BLOOD CELL COUNT 4.54 10^6/uL (4.40-6.38); RED CELL DISTRIBUTION WIDTH 14.6 % (11.5-15.2)
[2017-01-04 08:12] LABS: ANION GAP 14 mEq/L (8-16); CALCIUM 8.3 mg/dL (8.5-10.4); CARBON DIOXIDE 11 mEq/l (22-31); CHLORIDE 113 mEq/L (97-110); CREATININE 1.1 mg/dL (0.7-1.3); GLOMERULAR FILTRATION RATE > 60; GLUCOSE 248 mg/dL (70-100); POTASSIUM 5.5 mEq/L (3.5-5.2); SODIUM 138 mEq/L (134-144)
[2017-01-04] MEDS: morphINE SR 15 MG TAB PO SCH ×2 (08:41→21:18)
[2017-01-04] MEDS: FAMOTIDINE 20 MG TAB PO SCH ×2 (08:41→21:18)
[2017-01-04] MEDS: SENNOSIDES/DOCUSATE SODIUM TAB PO SCH ×2 (08:41→21:19)
[2017-01-04] MEDS: POLYETHYLENE GLYCOL 3350 17 GM PKT PO SCH ×3 (08:41→21:19)
[2017-01-04] MEDS: ENOXAPARIN 40 MG/0.4 ML SYR SC SCH (08:41)
[2017-01-04] MEDS: PANTOPRAZOLE SODIUM 40 MG TAB PO SCH (08:41)
[2017-01-04] MEDS: glipiZIDE XL 5 MG TAB PO SCH (08:41)
[2017-01-04] MEDS: CLARITHROMYCIN 500 MG TAB PO SCH ×2 (08:42→21:17)
[2017-01-04] MEDS ORDERED: NON-FORMULARY NEW DRUG (Lansoprazole [Prevacid] 15 MG) PO SCH (09:00)
--- NOTE | 2017-01-04 09:14 | SOAPPROG ---
SOAP Progress Note Assessment/Plan: Assessment: POD #1 sp L4/5 TLIF. Doing well this AM, was nauseated with vomiting overnight - now resolved Pain well controlled SELMA productive no new weakness or tingling Plan: Do not recommend starting his Plavix until his SELMA drain is out. Continue SELMA until further notice. PT/OT today Lumbar Xrays today Continue SELMA drain OK to DC if pain controlled on oral meds, urinating, ambulating. needs LSO prior to Discharge. discussed with Dr. Valdes 01/04/17 09:25 Subjective: awake, alert, pain well controlled. Denies new neurologic symptoms. Objective: Vital Signs Temp Pulse Resp BP Pulse Ox 36.8 C 79 16 106/75 96 01/04/17 07:10 01/04/17 07:10 01/04/17 07:10 01/04/17 07:10 01/04/17 07:10 Laboratory Results 01/04/17 05:13 01/04/17 05:13 01/03/17 01/04/17 01/05/17 05:59 05:59 05:59 Intake Total 2049 Output Total 2360 30 Balance -310 -30 ICD10 Worksheet Patient Problems: Problems Problem Status Onset Acute coronary syndrome Active Angina Active CAD - Coronary arteriosclerosis Active Placement of stent in coronary artery Active Anginal equivalent Acute
[2017-01-04] MEDS: diphenhydrAMINE 25 MG CAP PO PRN ×2 (11:30→21:25)
[2017-01-05] MEDS: ACETAMINOPHEN 500 MG TAB PO SCH ×2 (06:28→06:29)
--- NOTE | 2017-01-05 07:41 | SOAPPROG ---
SOAP Progress Note Assessment/Plan: Assessment: 66 yo M POD #2 L4/5 TLIF Plan: neuro: stable and doing well overall :) PT/OT recheck BMP, hyperkalemia at 5.5 yesterday post op x-rays look great likely dc home today please call with neuro changes discussed with Dr Mota 01/05/17 07:39 Subjective: + surgical back pain, leg pain improving, no weakness. Objective: Vital Signs Temp Pulse Resp BP Pulse Ox 36.8 C 72 16 97/56 L 94 01/05/17 07:17 01/05/17 07:17 01/05/17 07:17 01/05/17 07:17 01/05/17 07:17 Laboratory Results 01/04/17 05:13 01/04/17 01/05/17 01/06/17 05:59 05:59 05:59 Intake Total 2050 2700 Output Total 2360 1870 Balance -310 830 AAOX4, +FC PERRL, EOMI, no facial droop 5/5 + light touch C/D/I ICD10 Worksheet Patient Problems: Problems Problem Status Onset Acute coronary syndrome Active Angina Active CAD - Coronary arteriosclerosis Active Placement of stent in coronary artery Active Anginal equivalent Acute
[2017-01-05 08:21] LABS: ANION GAP 6 mEq/L (8-16); CALCIUM 8.6 mg/dL (8.5-10.4); CARBON DIOXIDE 25 mEq/l (22-31); CHLORIDE 106 mEq/L (97-110); CREATININE 1.2 mg/dL (0.7-1.3); GLOMERULAR FILTRATION RATE > 60; GLUCOSE 166 mg/dL (70-100); POTASSIUM 4.7 mEq/L (3.5-5.2); SODIUM 137 mEq/L (134-144)
[2017-01-05] MEDS: POLYETHYLENE GLYCOL 3350 17 GM PKT PO SCH (08:28)
[2017-01-05] MEDS: CLARITHROMYCIN 500 MG TAB PO SCH (08:28)
[2017-01-05] MEDS: FAMOTIDINE 20 MG TAB PO SCH (08:29)
[2017-01-05] MEDS: PANTOPRAZOLE SODIUM 40 MG TAB PO SCH (08:29)
[2017-01-05] MEDS: glipiZIDE XL 5 MG TAB PO SCH (08:29)
[2017-01-05] MEDS: SENNOSIDES/DOCUSATE SODIUM TAB PO SCH (08:29)
[2017-01-05] MEDS: ENOXAPARIN 40 MG/0.4 ML SYR SC SCH (09:12)
[2017-01-05] MEDS: morphINE SR 15 MG TAB PO SCH (09:13)
[2017-01-05 11:37] VITALS: BP 111/66; PULSE 78; RESP 18; TEMP 98.4; O2SAT 95
[2017-01-06] MEDS ORDERED: PATCH REMOVAL 1 EA PATCH TD SCH (20:28)
[2017-01-09] MEDS ORDERED: TESTOSTERONE IM 100 MG/ML SYRINGE IM SCH (16:57)
== END 2017-01-05 13:43 | disposition home or self-care (01) | DRG 460 ==
LOC: F3N 10:21
PROVIDERS: ADMIT Neurological Surgery; ATTEND Neurological Surgery
PROC: 01NB0ZZ Release Lumbar Nerve, Open Approach (ICD-10-PCS; principal; 2017-01-03 11:45)
PROC: 0SG00AJ Fusion of Lumbar Vertebral Joint with Interbody Fusion Device, Posterior Approach, Anterior Column, Open Approach (ICD-10-PCS; principal; 2017-01-03 11:45)
PROC: 3E0U0GB Introduction of Recombinant Bone Morphogenetic Protein into Joints, Open Approach (ICD-10-PCS; principal; 2017-01-03 11:45)
DX: M43.16 Spondylolisthesis, lumbar region (principal); M47.16 Other spondylosis with myelopathy, lumbar region; E87.5 Hyperkalemia; I25.10 Atherosclerotic heart disease of native coronary artery without angina pectoris; Z95.5 Presence of coronary angioplasty implant and graft
CPT/HCPCS: 97116-GP; 97161-GP; 97165-GO; C1713; G8978-GP-CJ; G8979-GP-CI; G8980-GP-CI; G8987-GO-CI; G8988-GO-CI; G8989-GO-CI; J0690; J0697; J1100; J1650; J2250; J2274; J2405; J2550; J2704; J3010; J7060

== ENCOUNTER → 2017-04-04 | Outpatient (CLI) | payer OTHER, MEDICARE | LOC: FLAB 13:57 | PROVIDERS: ATTEND Physician Assistant Surgical | DX: Z09 Encounter for follow-up examination after completed treatment for conditions other than malignant neoplasm (principal); Z98.1 Arthrodesis status ==

== ENCOUNTER → 2017-04-15 | Outpatient (CLI) | payer OTHER, MEDICARE | LOC: FIMAGING 09:40 | PROVIDERS: ATTEND Neurological Surgery | DX: Z98.890 Other specified postprocedural states (principal); M51.34 Other intervertebral disc degeneration, thoracic region; M48.061 Spinal stenosis, lumbar region without neurogenic claudication ==

== ENCOUNTER 2017-06-10 15:12 | Emergency (ER) | payer OTHER, MEDICARE ==
[2017-06-10 16:18] LABS: COLOR AMBER; LEUKOCYTE ESTERASE,URINE NEGATIVE (NEGATIVE); NITRITE,URINE POSITIVE (NEGATIVE)
[2017-06-10 16:35] LABS: MUCUS 2+ /lpf (NONE-1+)
[2017-06-10] MEDS ORDERED: NS 1,000 ML IV ONE (17:19)
--- NOTE | 2017-06-10 17:49 | EDPHY ---
H & P Stated Complaint: URINATING BLOOD SINCE LAST NIGHT HPI/ROS: Chief complaint: Urinating blood History of present illness: This is a 66-year-old male who presents to the emergency department reporting he is urinating blood. Patient reports he has developed urinary symptoms over the last 3 days. Initially had difficulty initiating urination and a weak stream. Today he noted what he believed was blood in his urine as it has turned a dark reddish color. He does state he has a remote history of urinary tract infection, 20 years ago. His current symptoms feel similar. He does state he started some azo yesterday to treat the urinary symptoms. This was before he noticed blood in his urine. I have asked him about back and flank pain. He states he has pain chronically since a surgery last May on his spine. This remained stable, there has been no changes in his back or flank pain. He does have a history of kidney stones. None of his symptoms currently feel similar. There has been no fever, no nausea , vomiting or diarrhea. Review of systems: A 10 point review of systems was obtained and other than described above was negative - Personal History Current Tetanus/Diphtheria Vaccine: Yes Tetanus Vaccine Date: 2006 - Medical/Surgical History Hx Asthma: No Hx Chronic Respiratory Disease: No Hx Diabetes: Yes Hx Cardiac Disease: Yes Hx Renal Disease: Yes Hx Cirrhosis: No Hx Alcoholism: No Hx HIV/AIDS: No Hx Splenectomy or Spleen Trauma: No Other PMH: PMH: Stents x4, DM II, ventral hernia repair x3, cholecystectomy, knee surgery x2, r elbow, appy, L4 ARACHNOID CYST, LAMINECTOMY TS-L1, kidney stones x 11 - Social History Smoking Status: Never smoked - Physical Exam Exam: General Appearance: Alert, no distress. Eyes: Pupils equal and round no pallor or injection. ENT, Mouth: Mucous membranes moist. Respiratory: There are no retractions, lungs are clear to auscultation. Cardiovascular: Regular rate and rhythm. Gastrointestinal: Abdomen is soft and non tender, no masses, bowel sounds normal. An umbilical hernia is noted, it is easily reducible. Genitourinary: No CVA tenderness Neurological: Alert and oriented. Strength and sensation intact and symmetrical. Skin: Warm and dry, no rashes. Musculoskeletal: Neck is supple non tender. Extremities are symmetrical, full range of motion. Psychiatric: Patient is oriented X 3, there is no agitation. Constitutional: Initial Vital Signs Temperature (C) 36.4 C 06/10/17 15:24 Heart Rate 98 06/10/17 15:24 Respiratory Rate 16 06/10/17 15:24 Blood Pressure 185/95 H 06/10/17 15:24 O2 Sat (%) 94 06/10/17 15:24 O2 Delivery Mode Room Air Allergies/Adverse Reactions: levofloxacin [Levofloxacin] Allergy (Severe, Verified 06/10/17 15:28) Other-Enter Comments sertraline [Sertraline] Allergy (Severe, Verified 06/10/17 15:28) Other-Enter Comments Aoiyftb-Pfb-Kbu Reductase Inhibitor Allergy (Severe, Verified 06/10/17 15:28) Other-Enter Comments ketorolac [Ketorolac] Allergy (Mild, Verified 06/10/17 15:28) Rash ropinirole HCl [From Requip] Allergy (Unknown, Verified 06/10/17 15:28) Other-Enter Comments celecoxib [From Celebrex] Allergy (Verified 06/10/17 15:28) Quinolones Allergy (Verified 06/10/17 15:28) HART 2 INHIBITORS Allergy (Unknown, Uncoded 06/10/17 15:28) Other-Enter Comments fluoroquinolones Allergy (Unknown, Uncoded 06/10/17 15:28) Home Medications: Medication Instructions Recorded Cephalexin [Keflex] 500 mg PO TID 10 Days cap 06/10/17 GLIPIZIDE 06/10/17 Hyacyanine 06/10/17 Plavix 06/10/17 Medical Decision Making Procedures: A rectal exam is performed by myself. Prostate is nontender, not boggy. ED Course/Re-evaluation: Patient is discussed with my secondary supervising physician Dr. Ramirez Benson. Patient presents to the emergency room with urinary symptoms including difficulty initiating stream, weak stream and now with blood in the urine. However blood began after he started azo. Urinalysis is concerning for infection. He is nontoxic. Afebrile and vital signs are stable. He does have chronic back and flank pain and states there are no new signs or symptoms. He has a history of kidney stones and states this does not feel similar. I have discussed pursuing a CT scan with him to rule out nephrolithiasis and other pathology but he has declined. Prostate exam is unremarkable. Likely a urinary tract infection. Given his allergies I have given him IV Rocephin and started him on Keflex. Urine culture is ordered. He is discharged home. Home care is discussed. He is to follow up with his primary care doctor next week for recheck. Strict return precautions are given. The patient voiced understanding and agreement with plan. Differential Diagnosis: Included but not limited to cystitis, prostatitis, pyelonephritis, nephrolithiasis, colitis, diverticulitis - Data Points Laboratory Results: Laboratory Results 06/10/17 19:10 06/10/17 19:10 06/10/17 06/10/17 06/10/17 19:10 19:10 15:40 WBC 5.84 10^3/uL 10^3/uL (3.80-9.50) RBC 5.28 10^6/uL 10^6/uL (4.40-6.38) Hgb 16.8 g/dL g/dL (13.7-17.5) Hct 48.0 % % (40.0-51.0) MCV 90.9 fL fL (81.5-99.8) MCH 31.8 pg pg (27.9-34.1) MCHC 35.0 g/dL g/dL (32.4-36.7) RDW 14.7 % % (11.5-15.2) Plt Count 222 10^3/uL 10^3/uL (150-400) MPV 8.7 fL fL (8.7-11.7) Neut % (Auto) 72.4 % % (39.3-74.2) Lymph % (Auto) 16.1 % % (15.0-45.0) [place] % (Auto) 9.2 % % (4.5-13.0) Eos % (Auto) 0.9 % % (0.6-7.6) Baso % (Auto) 0.5 % % (0.3-1.7) Nucleat RBC Rel Count 0.0 % % (0.0-0.2) Absolute Neuts (auto) 4.23 10^3/uL 10^3/uL (1.70-6.50) Absolute Lymphs (auto) 0.94 10^3/uL L 10^3/uL (1.00-3.00) Absolute Monos (auto) 0.54 10^3/uL 10^3/uL (0.30-0.80) Absolute Eos (auto) 0.05 10^3/uL 10^3/uL (0.03-0.40) Absolute Basos (auto) 0.03 10^3/uL 10^3/uL (0.02-0.10) Absolute Nucleated RBC 0.00 10^3/uL 10^3/uL (0-0.01) Immature Gran % 0.9 % % (0.0-1.1) Immature Gran # 0.05 10^3/uL 10^3/uL (0.00-0.10) Sodium 144 mEq/L mEq/L (134-144) Potassium 4.7 mEq/L mEq/L (3.5-5.2) Chloride 106 mEq/L mEq/L (97-110) Carbon Dioxide 25 mEq/l mEq/l (22-31) Anion Gap 13 mEq/L mEq/L (8-16) BUN 15 mg/dL mg/dL (7-23) Creatinine 1.1 mg/dL mg/dL (0.7-1.3) Estimated GFR > 60 Glucose 101 mg/dL H mg/dL (70-100) Calcium 8.7 mg/dL mg/dL (8.5-10.4) Urine Color [place] Urine Appearance CLEAR Urine pH 5.0 (5.0-7.5) Ur Specific [place] 1.026 (1.002-1.030) Urine Protein NEGATIVE (NEGATIVE) Urine Ketones NEGATIVE (NEGATIVE) Urine Blood NEGATIVE (NEGATIVE) Urine Nitrate POSITIVE H (NEGATIVE) Urine Bilirubin NEGATIVE (NEGATIVE) Urine Urobilinogen 4.0 EU H EU (0.2-1.0) Ur Leukocyte Esterase NEGATIVE (NEGATIVE) Urine RBC 3-5 /hpf H /hpf (0-3) Urine WBC 3-5 /hpf H /hpf (0-3) Ur Epithelial Cells NONE SEEN /lpf /lpf (NONE-1+) Urine Mucus 2+ /lpf H /lpf (NONE-1+) Urine Glucose 1+ H (NEGATIVE) Medications Given: Discontinued Medications Sodium Chloride (Ns) 1,000 mls @ 0 mls/hr IV EDNOW ONE; Wide Open PRN Reason: Protocol Stop: 06/10/17 17:20 Last Admin: 12/16/17 17:30 Dose: 1,000 mls Ceftriaxone Sodium/Dextrose (Rocephin 1 Gm (Premix)) 50 mls @ 100 mls/hr IV EDNOW ONE PRN Reason: Protocol Stop: 06/10/17 19:21 Last Admin: 06/10/17 19:18 Dose: 50 mls Departure - Departure Disposition: Home, Routine, Self-Care Clinical Impression: Urinary tract infection Qualifiers: Urinary tract infection type: site unspecified Hematuria presence: with hematuria Qualified Code(s): N39.0 - Urinary tract infection, site not specified ; R31.9 - Hematuria, unspecified; R31.9 - Hematuria, unspecified Condition: Good Instructions: Cephalexin (By mouth), Urinary Tract Infection in Men (ED) Additional Instructions: Follow-up with your primary care doctor on Monday for recheck without fail Take all antibiotics as prescribed until finished even if feeling better If symptoms worsen or new symptoms develop return to the emergency room for recheck Referrals: Sue Marie MD [Primary Care Provider] - As per Instructions Prescriptions: Cephalexin [Keflex] 500 mg PO TID 10 Days cap
[2017-06-10 19:20] LABS: % IMMATURE GRANULYOCYTES 0.9 % (0.0-1.1); ABSOLUTE IMMATURE GRANULOCYTES 0.05 10^3/uL (0.00-0.10); ADD DIFF? NO; ADD MORPH? NO; ADD SCAN? NO; ATYPICAL LYMPHOCYTE FLAG 0 (0-99); FRAGMENT RBC FLAG 0 (0-99); HEMOGLOBIN 16.8 g/dL (13.7-17.5); LEFT SHIFT FLG 0 (0-99); LIPEMIA HEMOLYSIS FLAG 90 (0-99); MEAN CELL HEMOGLOBIN 31.8 pg (27.9-34.1); MEAN CELL VOLUME 90.9 fL (81.5-99.8); MEAN PLATELET VOLUME 8.7 fL (8.7-11.7); PLATELET CLUMPS FLAG 10 (0-99); PLATELET COUNT 222 10^3/uL (150-400); RED BLOOD CELL COUNT 5.28 10^6/uL (4.40-6.38); RED CELL DISTRIBUTION WIDTH 14.7 % (11.5-15.2)
[2017-06-10 19:31] VITALS: RESP 18
[2017-06-10 19:33] LABS: ANION GAP 13 mEq/L (8-16); CALCIUM 8.7 mg/dL (8.5-10.4); CARBON DIOXIDE 25 mEq/l (22-31); CHLORIDE 106 mEq/L (97-110); CREATININE 1.1 mg/dL (0.7-1.3); GLOMERULAR FILTRATION RATE > 60; GLUCOSE 101 mg/dL (70-100); POTASSIUM 4.7 mEq/L (3.5-5.2); SODIUM 144 mEq/L (134-144)
[2017-06-10 20:04] VITALS: BP 121/65; PULSE 78; TEMP 98.4; O2SAT 96
== END 2017-06-10 20:05 | disposition home or self-care (01) ==
DX: N39.0 Urinary tract infection, site not specified (principal); B96.89 Other specified bacterial agents as the cause of diseases classified elsewhere; E11.9 Type 2 diabetes mellitus without complications; E86.9 Volume depletion, unspecified
CPT/HCPCS: 96361; 96365; 99284; J0696

== ENCOUNTER → 2017-07-05 | Outpatient (CLI) | payer OTHER, MEDICARE ==
[~2017-07-05] MED LIST changes: -BACITRACIN 50,000 UNITS/10 ML SYR IRR ONE; -BUPIVACAINE 0.25% 30 ML SDV ONE; -BUPIVACAINE/EPI 0.25% 30 ML SDV ONE; -CITRATE DEXTROSE SOLN 500 ML BAG ONE; +GADOBUTROL 10 ML VIAL IVP ONE; -THROMBIN (BOVINE) 20,000 UNIT VIAL TP ONE; -ceFAZolin 2 GM/DEXTROSE 100 ML IV ONE; -fentaNYL 100 MCG/2 ML INJ IT ONE; -morphINE PF 5 MG/10 ML INJ IT ONE
== END ==
LOC: FIMAGING 19:48
PROVIDERS: ATTEND Physician Assistant Surgical
DX: R53.1 Weakness (principal); M54.9 Dorsalgia, unspecified; G93.0 Cerebral cysts; Z98.1 Arthrodesis status; Z98.890 Other specified postprocedural states
CPT/HCPCS: 72158; A9585

== ENCOUNTER → 2017-07-07 | Outpatient (CLI) | payer OTHER, MEDICARE | LOC: FIMAGING 16:06 | PROVIDERS: ATTEND Physician Assistant Surgical | DX: G96.19 Other disorders of meninges, not elsewhere classified (principal); M50.320 Other cervical disc degeneration, mid-cervical region, unspecified level; Z98.1 Arthrodesis status ==

== ENCOUNTER → 2017-07-10 | Outpatient (CLI) | payer OTHER, MEDICARE | LOC: FIMAGING 19:40 | PROVIDERS: ATTEND Internal Medicine Rheumatology | DX: M75.92 Shoulder lesion, unspecified, left shoulder (principal); M12.812 Other specific arthropathies, not elsewhere classified, left shoulder ==

== ENCOUNTER 2017-08-29 15:56 | Emergency (ER) | payer OTHER, MEDICARE ==
[2017-08-29] MEDS ORDERED: ONDANSETRON 4 MG/2 ML VIAL ONE (16:57)
[2017-08-29] MEDS ORDERED: NS 1,000 ML IV ONE (16:59)
[2017-08-29] MEDS ORDERED: ONDANSETRON 4 MG/2 ML VIAL IVP ONE (16:59)
--- NOTE | 2017-08-29 17:10 | EDPHY ---
H & P Time Seen by Provider: 08/29/17 16:18 HPI/ROS: HPI Diarrhea, anxiety. 66-year-old male by private vehicle. This patient reports that starting August 24 he started feeling generalized mid lays with nasal and upper airway congestion associated with nausea and then followed by diarrhea. He reports that since August 24 he has had continued intermittent diarrhea and a feeling of fatigue as well as feeling achy. He states that last night he had a panic attack. He has a history of panic attacks. He reports that today he again felt fatigued as well as dehydrated and had another large episode of diarrhea followed by panic attack just prior to coming to the emergency department. He is concerned that his electrolytes are off. He is concerned that he has become dehydrated. He has had influenza vaccination. ROS: Constitutional: No fever, no chills. As above. Eyes: No discharge. No changes in vision. ENT: No sore throat. As above. Respiratory: No cough. No shortness of breath. Cardiac: No chest pain, no palpitations. Gastrointestinal: No abdominal pain, no vomiting, as above. Genitourinary: No hematuria. No dysuria or increased frequency with urination. Musculoskeletal: No back pain. No neck pain. No myalgias or arthralgias. Skin: No rashes. Neurological: No headache. No focal weakness or altered sensation. Past medical history: Coronary artery disease with multiple stents placed, type 2 diabetes, ventral abdominal hernia repair x3, cholecystectomy, kidney stones, anxiety. Social history: Nonsmoker. Here by himself. Denies alcohol. Physical Exam: General Appearance: Alert, pleasant, mildly anxious but no distress. This patient is responding to questions appropriately and in full sentences. This patient appears well-hydrated and well-nourished. Eyes: Pupils equal and round no pallor or injection. No lid edema, erythema or injection. Respiratory: There are no retractions, lungs are clear to auscultation with good air movement bilaterally. Cardiovascular: Regular rate and rhythm. No murmur. Gastrointestinal: Abdomen is soft and nontender, no masses, bowel sounds normal. No focal tenderness at McBurney's point. No Brown sign. Neurological: Motor sensory function is grossly intact. Cranial nerves are normal. Gait is normal. Skin: Warm and dry, no rashes. Musculoskeletal: Neck is supple and nontender. Extremities are symmetrical. All joints range without pain or impingement. Psychiatric: No agitation. No depression. Database: EKG: EKG time is 5:12 p.m.; EKG shows a narrow complex normal sinus rhythm with a ventricular rate of 82. Borderline left axis deviation. The NE, QRS, QT intervals are within normal limits. T-wave inversions noted in lead 3 and AVF. There are no other ST-T wave changes indicative of ischemic or injury pattern. No evidence of right heart strain. This EKG was compared to a prior study from 03/22/2016. No significant changes. Interpreted by me. Imaging: Procedures: Emergency department course: IV was placed. His vital signs were reviewed. Patient is borderline tachycardic, moderately hypertensive. Vital signs otherwise normal. He was started on IV normal saline with 1 L to be given over the next 1-2 hours. He was given 4 mg of IV Zofran for nausea. EKG obtained and reviewed by myself. 6:00 p.m., patient re-evaluated. Napping but easily arousable. Reports feeling much better. Denies any symptoms. I discussed the results of his EKG, blood work. His vital signs were reviewed. Tachycardia has resolved. He feels comfortable going home and I feel he is safe for discharge. Follow-up and return to emergency department precautions have been reviewed with him. All of his questions were answered. He was discharged in good condition. Differential Diagnosis: The differential diagnosis on this patient includes but is not limited to viral syndrome, food-borne illness, anxiety, dehydration. Acute coronary syndrome, serious bacterial infection unlikely. This represents a partial list of diagnoses considered. These considerations are based on history, physical exam , past history, reassessment and diagnostic testing. Smoking Status: Never smoked Constitutional: Initial Vital Signs Temperature (C) 36 C 08/29/17 16:00 Heart Rate 102 H 08/29/17 16:00 Respiratory Rate 18 08/29/17 16:00 Blood Pressure 174/87 H 08/29/17 16:00 O2 Sat (%) 96 08/29/17 16:00 O2 Delivery Mode Room Air Allergies/Adverse Reactions: levofloxacin [Levofloxacin] Allergy (Severe, Verified 08/29/17 16:05) Other-Enter Comments sertraline [Sertraline] Allergy (Severe, Verified 08/29/17 16:05) Other-Enter Comments Dpkcbld-Ydk-Nme Reductase Inhibitor Allergy (Severe, Verified 08/29/17 16:05) Other-Enter Comments ketorolac [Ketorolac] Allergy (Mild, Verified 08/29/17 16:05) Rash ropinirole HCl [From Requip] Allergy (Unknown, Verified 08/29/17 16:05) Other-Enter Comments celecoxib [From Celebrex] Allergy (Verified 08/29/17 16:05) Quinolones Allergy (Verified 08/29/17 16:05) HART 2 INHIBITORS Allergy (Unknown, Uncoded 06/10/17 15:28) Other-Enter Comments fluoroquinolones Allergy (Unknown, Uncoded 06/10/17 15:28) Home Medications: Medication Instructions Recorded GLIPIZIDE 06/10/17 Plavix 06/10/17 ALPRAZolam [Xanax 0.5 MG (*)] 0.5 mg PO 08/29/17 Alfuzosin HCl [Uroxatral] 10 mg PO 08/29/17 Aspirin [Aspirin 325 mg (*)] 325 mg PO DAILY 08/29/17 Hyoscyamine Sulfate [Hyomax-Sr 0.375 mg PO 08/29/17 0.375 mg (*)] Ondansetron Odt [Zofran Odt 4 mg 4 mg PO Q4PRN PRN #10 tab 08/29/17 (*)] Terbinafine HCl [LamISIL 250 MG 250 mg PO 08/29/17 (*)] Medical Decision Making - Data Points Laboratory Results: Laboratory Results 08/29/17 17:06 08/29/17 17:06 08/29/17 08/29/17 17:06 17:06 WBC 5.99 10^3/uL 10^3/uL (3.80-9.50) RBC 5.37 10^6/uL 10^6/uL (4.40-6.38) Hgb 17.2 g/dL g/dL (13.7-17.5) Hct 49.2 % % (40.0-51.0) MCV 91.6 fL fL (81.5-99.8) MCH 32.0 pg pg (27.9-34.1) MCHC 35.0 g/dL g/dL (32.4-36.7) RDW 14.9 % % (11.5-15.2) Plt Count 207 10^3/uL 10^3/uL (150-400) MPV 8.9 fL fL (8.7-11.7) Neut % (Auto) 72.6 % % (39.3-74.2) Lymph % (Auto) 13.9 % L % (15.0-45.0) [place] % (Auto) 11.0 % % (4.5-13.0) Eos % (Auto) 1.3 % % (0.6-7.6) Baso % (Auto) 0.7 % % (0.3-1.7) Nucleat RBC Rel Count 0.0 % % (0.0-0.2) Absolute Neuts (auto) 4.35 10^3/uL 10^3/uL (1.70-6.50) Absolute Lymphs (auto) 0.83 10^3/uL L 10^3/uL (1.00-3.00) Absolute Monos (auto) 0.66 10^3/uL 10^3/uL (0.30-0.80) Absolute Eos (auto) 0.08 10^3/uL 10^3/uL (0.03-0.40) Absolute Basos (auto) 0.04 10^3/uL 10^3/uL (0.02-0.10) Absolute Nucleated RBC 0.00 10^3/uL 10^3/uL (0-0.01) Immature Gran % 0.5 % % (0.0-1.1) Immature Gran # 0.03 10^3/uL 10^3/uL (0.00-0.10) Sodium 141 mEq/L mEq/L (135-145) Potassium 4.8 mEq/L mEq/L (3.5-5.2) Chloride 110 mEq/L mEq/L (97-110) Carbon Dioxide 20 mEq/l L mEq/l (22-31) Anion Gap 11 mEq/L mEq/L (8-16) BUN 15 mg/dL mg/dL (7-23) Creatinine 1.1 mg/dL mg/dL (0.7-1.3) Estimated GFR > 60 Glucose 130 mg/dL H mg/dL (70-100) Calcium 9.6 mg/dL mg/dL (8.5-10.4) Troponin I < 0.012 ng/mL ng/mL (0.000-0.034) Vitamin B12 Pending Medications Given: Discontinued Medications Sodium Chloride (Ns) 1,000 mls @ 0 mls/hr IV EDNOW ONE; Wide Open PRN Reason: Protocol Stop: 08/29/17 17:00 Last Admin: 08/29/17 17:04 Dose: 1,000 mls Ondansetron HCl (Zofran) 4 mg IVP EDNOW ONE Stop: 08/29/17 17:00 Last Admin: 08/29/17 17:04 Dose: 4 mg Departure - Departure Disposition: Home, Routine, Self-Care Clinical Impression: Anxiety, Diarrhea, Dehydration Condition: Good Instructions: Acute Diarrhea (ED) Additional Instructions: Read and follow provided instructions. Follow-up with your primary care physician in 1-2 days for re-evaluation. Your B12 results should be available at the latest by tomorrow morning. Continue taking your medication as prescribed. Take medication as prescribed for nausea. Return to the emergency department for worsening symptoms, vomiting and inability to keep fluids down despite medications, abdominal pain or other serious concerns. Referrals: Sue Marie MD [Primary Care Provider] - As per Instructions Prescriptions: Ondansetron Odt [Zofran Odt 4 mg (*)] 4 mg PO Q4PRN PRN #10 tab PRN Reason: For Nausea & Vomiting
[2017-08-29 17:14] LABS: PLATELET COUNT 207 10^3/uL (150-400)
[2017-08-29 18:30] VITALS: BP 103/63; PULSE 77; RESP 16; TEMP 97.3; O2SAT 92
--- NOTE | 2017-08-30 07:54 | CPEKG ---
Heart Rate: 82 RR Interval: 732 P-R Interval: 144 QRSD Interval: 80 QT Interval: 360 QTC Interval: 421 P [place]ck[place]: 29 QRS [place]: -21 T Wave [place]: -14 EKG Severity - BORDERLINE ECG - EKG Impression: SINUS RHYTHM EKG Impression: BORDERLINE LEFT AXIS DEVIATION EKG Impression: BORDERLINE T ABNORMALITIES, INFERIOR LEADS Electronically Signed By: Jefferson Loving 30-Aug-2017 09:22:56
== END 2017-08-29 18:30 | disposition home or self-care (01) ==
DX: F41.9 Anxiety disorder, unspecified (principal); R19.7 Diarrhea, unspecified; E86.0 Dehydration; E86.9 Volume depletion, unspecified; I25.10 Atherosclerotic heart disease of native coronary artery without angina pectoris; E11.9 Type 2 diabetes mellitus without complications; Z79.82 Long term (current) use of aspirin; Z95.5 Presence of coronary angioplasty implant and graft
CPT/HCPCS: 93005; 96374; 99284; J2405; 82607-90

== ENCOUNTER 2017-09-28 06:44 | Inpatient (IN) | payer OTHER, MEDICARE ==
[2017-09-28] MEDS ORDERED: ceFAZolin 2 GM/SWFI 2 GM/20 ML SYR IVP ONE (06:54)
[2017-09-28] MEDS ORDERED: GABAPENTIN 300 MG CAP PO ONE (06:54)
[2017-09-28] MEDS ORDERED: ACETAMINOPHEN 500 MG TAB PO ONE (06:54)
[2017-09-28] MEDS ORDERED: LIDOCAINE 1% 2 ML INJ ID PRN (07:02)
[2017-09-28] MEDS ORDERED: LR 1,000 ML IV ONE (07:02)
--- NOTE | 2017-09-28 07:07 | PDGENHP ---
History & Physical Chief Complaint: leg heaviness History of Present Illness: hx of arachnoid cyst L3-5 with progressive leg weakness, heaviness Pertinent Past, Social, Family History: DM. CAD Relevant Physical Exam: AAOx4,. PERRL, EOMI. 5/5. + light touch. CTA bilat. RRR Cardiorespiratory Assessment: CTA bilat. RRR
[2017-09-28] MEDS ORDERED: BUPIVACAINE 0.25% 30 ML SDV ONE ×2 (07:15→07:16)
[2017-09-28] MEDS ORDERED: BACITRACIN 50,000 UNITS/10 ML SYR IRR ONE ×2 (07:16→09:55)
[2017-09-28] MEDS ORDERED: THROMBIN (BOVINE) 5,000 UNIT VIAL TP ONE (07:16)
[2017-09-28] MEDS ORDERED: AVITENE POWDER 1 GM JAR TP ONE (07:17)
[2017-09-28] MEDS ORDERED: CHLORHEXIDINE GLUC HIBICLENS 118 ML BTL TP ONE (07:19)
--- NOTE | 2017-09-28 08:13 | PDANEPAE ---
ANE History of Present Illness Arachnoid cyst ANE Past Medical History - Cardiovascular History Hx Hypertension: No Hx Arrhythmias: No Hx Chest Pain: No Hx Coronary Artery / Peripheral Vascular Disease: Yes Hx CHF / Valvular Disease: No Hx Palpitations: No Cardiovascular History Comment: STENTS X 4 MOST RECENT 12/2013. HX - ANGINA - Pulmonary History Hx COPD: No Hx Asthma/Reactive Airway Disease: No Hx Recent Upper Respiratory Infection: No Hx Oxygen in Use at Home: No Hx Sleep Apnea: No Sleep Apnea Screening Result - Last Documented: Negative - Neurologic History Hx Cerebrovascular Accident: No Hx Seizures: No Hx Dementia: No Neurologic History Comment: "foggy", some difficulty with short term memory for about 6 months - Endocrine History Hx Diabetes: Yes Endocrine History Comment: NIDDM x 6 years - GLIPIZIDE - Renal History Hx Renal Disorders: Yes Renal History Comment: HAS HX OF KIDNEY STONES - Liver History Hx Hepatic Disorders: Yes Hepatic History Comment: FATTY LIVER - Neurological & Psychiatric Hx Hx Neurological and Psychiatric Disorders: Yes Neurological / Psychiatric History Comment: ANXIETY ATTACK RECENTLY - Cancer History Hx Cancer: No - Congenital Disorder History Hx Congenital Disorders: Yes Congenital History Comment: SPONDOLYOSIS LUMBAR - GI History Hx Gastrointestinal Disorders: Yes Gastrointestinal History Comment: ULCER 1976 - Other Health History Other Health History: CATARACTS. RECENT ER 08/29 WITH DIARRHEA & DEHYDRATION - Chronic Pain History Chronic Pain: Yes (LEG PAIN & THORACIC SPINE & L SHOULDER) - Surgical History Prior Surgeries: FUSION L4/L5 2017. L1-L5 CYST REMOVAL. MULTIPLE LAMINECTOMY . VENTRAL HERNIA X3. APPENDECTOMY. IZABELLA. RONA KNEE SCOPE. RT ELBOW ANE Review of Systems Review of Systems: - Exercise capacity METS (RN): 3 METS ANE Patient History - Allergies Allergies/Adverse Reactions: levofloxacin [Levofloxacin] Allergy (Severe, Verified 09/28/17 07:09) Other-Enter Comments sertraline [Sertraline] Allergy (Severe, Verified 09/28/17 07:10) Other-Enter Comments Yzkxous-Ksf-Jll Reductase Inhibitor Allergy (Severe, Verified 09/28/17 07:10) Other-Enter Comments ketorolac [Ketorolac] Allergy (Mild, Verified 09/28/17 07:10) Rash ropinirole HCl [From Requip] Allergy (Unknown, Verified 09/28/17 07:10) Other-Enter Comments celecoxib [From Celebrex] Allergy (Verified 09/28/17 07:10) "DID NOT AGREE WITH ME" Quinolones Allergy (Verified 09/28/17 07:10) CONVULSIVE SPASMS HART 2 INHIBITORS Allergy (Unknown, Uncoded 09/28/17 07:10) Other-Enter Comments fluoroquinolones Allergy (Unknown, Uncoded 09/28/17 07:10) CONVULSIVE SPASMS - Home Medications Home Medications: Clopidogrel Bisulfate [Plavix (*)] 75 mg PO HS 06/10/17 [Last Taken 09/20/17] glipiZIDE [Glipizide ER] 10 mg PO HS 06/10/17 [Last Taken 09/27/17 12:00] Terbinafine HCl [LamISIL 250 MG (*)] 250 mg PO HS 08/29/17 [Last Taken 09/28/17 00:00] Aspirin [Aspirin 81mg (*)] 81 mg PO HS 09/06/17 [Last Taken 09/20/17] Cyanocobalamin [Vitamin B12 (*)] 1,000 mcg PO HS 09/06/17 [Last Taken 09/25/17] Lansoprazole [Prevacid] 15 mg PO HS 09/06/17 [Last Taken 09/27/17 12:00] Herbals/Supplements -Info Only 1 ea PO DAILY 09/07/17 [Last Taken Unknown] Tamsulosin HCl [Flomax 0.4 MG (*)] 0.4 mg PO HS 09/28/17 [Last Taken 09/27/17] - Anes Hx Anes Hx: no prior problems - Smoking Hx Smoking Status: Never smoked - Family Anes Hx Family Hx Anesthesia Complications: NEG ANE Labs/Vital Signs - Vital Signs Height: 180.34 cm Weight: 86.183 kg ANE Physical Exam - Airway Neck exam: decreased ROM (Limited by pain in extension) Mallampati Score: Class 1 Mouth exam: normal dental/mouth exam - Pulmonary Pulmonary: clear to auscultation - Cardiovascular Cardiovascular: regular rate and rhythym - ASA Status ASA Status: III ANE Anesthesia Plan Anesthesia Plan: general endotracheal anesthesia
[2017-09-28] MEDS ORDERED: MIDAZOLAM 2 MG/2 ML VIAL IVP ONE (08:22)
[2017-09-28] MEDS ORDERED: MIDAZOLAM 2 MG/2 ML VIAL ONE (08:23)
[2017-09-28] MEDS ORDERED: fentaNYL 100 MCG/2 ML INJ ONE ×4 (08:29→19:41)
[2017-09-28] MEDS ORDERED: PROPOFOL 200 MG/20 ML VIAL ONE (08:30)
[2017-09-28] MEDS ORDERED: REMIFENTANIL HCL 1 MG VIAL ONE ×2 (08:30→10:28)
[2017-09-28] MEDS ORDERED: PROPOFOL/EMULSION 500 MG/50 ML BOTTLE IV ONE ×3 (08:43→10:52)
[2017-09-28] MEDS ORDERED: DEXAMETHASONE 4 MG/ML VIAL ONE ×3 (11:06)
[2017-09-28] MEDS ORDERED: ONDANSETRON 4 MG/2 ML VIAL ONE (11:06)
[2017-09-28] MEDS ORDERED: LIDOCAINE 2% 5 ML SDV ONE (11:06)
[2017-09-28] MEDS ORDERED: ROCURONIUM 50 MG/5 ML VIAL ONE (11:07)
[2017-09-28] MEDS ORDERED: fentaNYL 100 MCG/2 ML INJ IVP PRN (11:35)
[2017-09-28] MEDS ORDERED: ONDANSETRON 4 MG/2 ML VIAL IVP PRN (11:35)
[2017-09-28] MEDS ORDERED: PROMETHAZINE HCL 25 MG/ML INJ IVP PRN (11:35)
[2017-09-28] MEDS ORDERED: NALOXONE HCL 0.4 MG/ML INJ IVP PRN ×2 (11:35→12:33)
[2017-09-28] MEDS ORDERED: HYDROmorphone HCL/NS 0.5 MG/ML SYR IVP PRN (11:35)
[2017-09-28] MEDS ORDERED: BISACODYL 10 MG SUPP PR PRN (12:33)
[2017-09-28] MEDS ORDERED: ONDANSETRON DISINTEGRATING 4 MG TAB PO PRN (12:33)
[2017-09-28] MEDS ORDERED: morphINE PCA 30 MG/30 ML PCA IV PRN (12:33)
[2017-09-28] MEDS ORDERED: LACTULOSE 20 GM/30 ML UDCUP PO PRN (12:33)
[2017-09-28] MEDS ORDERED: MAGNESIUM HYDROXIDE 30 ML UDCUP PO PRN (12:33)
--- NOTE | 2017-09-28 12:39 | SOAPPROG ---
SOAP Progress Note Assessment/Plan: Assessment: 67 yo M sp fenestrastion of L3-5 arachnoid cyst Plan: stable to ICU if lumbar drain functional, please drain 10-20 ml/hr keep HOB flat on bedrest do NOT put lumbar SELMA bulb to suction please call with neuro changes 09/28/17 12:37 Subjective: + back pain. Objective: Vital Signs Temp Pulse Resp BP Pulse Ox 36.4 C 83 16 163/85 H 97 09/28/17 07:56 09/28/17 07:56 09/28/17 07:56 09/28/17 07:56 09/28/17 07:56 awake, alert PERRL, EOMI 5/5 + light touch ICD10 Worksheet Patient Problems: Problems Problem Status Onset Acute coronary syndrome Active Angina Active CAD - Coronary arteriosclerosis Active Placement of stent in coronary artery Active Anginal equivalent Acute
[2017-09-28] MEDS ORDERED: NS W/ 20 KCl/L 1,000 ML IV SCH (12:45)
--- NOTE | 2017-09-28 13:05 | ASMTCASEMG ---
Living Arrangements What is your living Answers: Alone arrangement? Who do you live with? Type Of Residence What kind of residence do Answers: House you live in? Discharge Plan Comments Coordination Status Comments Notes: Patient is a 67yo single male who was admitted for a fenestration of Arachnoid Cyst with Dr. Salcedo. PT/OT have been ordered. D/C plan TBD. CM will follow. Date Signed: 09/28/2017 01:05 PM Electronically Signed By:Danna Lehman LCSW
[2017-09-28] MEDS: ONDANSETRON 4 MG/2 ML VIAL IVP PRN ×3 (13:11→22:10)
[2017-09-28] MEDS: ceFAZolin 2 GM/SWFI 2 GM/20 ML SYR IVP SCH ×2 (13:56→21:13)
[2017-09-28] MEDS ORDERED: ceFAZolin 2 GM/DEXTROSE 100 ML IV SCH (14:00)
[2017-09-28] MEDS: METHOCARBAMOL 750 MG TAB PO PRN (14:02)
--- NOTE | 2017-09-28 14:08 | GOP ---
[f rep st] OPERATIVE REPORT DATE OF OPERATION: 09/28/2017 SURGEON: Tucker Andrea MD DEICER ELEMENT WINDER MACHINE: Mariano Triplett PA-C. ANESTHESIA: General endotracheal. PREOPERATIVE DIAGNOSIS: Recurrent lumbar arachnoid cyst with progressive enlargement and loss of amos rological function. POSTOPERATIVE DIAGNOSIS: Recurrent lumbar arachnoid cyst with progressive enlargement and loss of ne urological function. PROCEDURE PERFORMED: 1. L2 through L5 redo laminectomies for open fenestration/resection of recurrent arachnoid cyst. 2. Use of intraoperative microscopy and fluoroscopy. 3. Placement of lumbar drain. 4. Injection of intrathecal narcotic analgesics for postoperative pain control. FINDINGS: ESTIMATED BLOOD LOSS: 150 cc. INDICATIONS: The patient is a 67-year-old man with progressive neurologic deficit in the lower extre mities secondary to a large recurring arachnoid cyst in the lumbar spine. He presents now for redo l aminectomies and open fenestration/resection of the cyst. DESCRIPTION OF PROCEDURE: After informed consent was obtained, the patient was taken to the operatin g room and placed in the prone position on the Vik frame. The lumbosacral area was prepped and dr aped in a sterile fashion. After fluoroscopic localization of the correct levels, the subcutaneous a nd intramuscular tissues were infiltrated with local anesthesia. A midline linear incision was then created over the L3 to 5 spinous processes. This was carried down to the fascial layer which was the n incised using the monopolar electrocautery. After incising the fascia, there was a difficult disse ction down to the epidural space due to the lack of any normal anatomy. Eventually, some bone was fo und up near the L1 level and at the L5 level and using this plane, I came around laterally into the a martha of interest from L2 to L5. There was an extensive amount of scar tissue which required very meti culous dissection. The dura was eventually opened and similarly intradurally there was an extensive amount of scar tissue as well. The nerves were very stuck and there was a large arachnoid cyst that was carefully removed in piecemeal under high-power microscopy. The nerves were very tangled up in t his and along with the scar tissue, it made it a very difficult removal process that took approximate ly 3 to 4 times as long as it is normally would. I had not planned on going up as high as L2 origina lly and we did not do motor evoked potentials in the neuro monitoring area but once I realized I was going to have to demarco this arachnoid cyst and scar tissue rostrally, we did irrigation supervisor motor evoked pot entials which were good. I eventually did resect all of the cyst that I could identify and copiously irrigated the area with antibiotic irrigation. The dura was then closed using 5-0 and 6-0 Prolene s utures. This was also a very difficult closure and there were defects and due to the extremely large amount of scar tissue, I could pull the dura together at all locations and this was patched with Dur aGen and Gelfoam. Following this, a lumbar drain was placed at the L5-S1 level but it was very diffi cult to tell if this was in the right space due to the lack of spinal fluid at this point. The wound was then closed in a layered fashion using interrupted Vicryl sutures followed by Steri-Strips on th e skin. COMPLICATIONS: None. DISPOSITION: The patient is currently in the process of being repositioned for extubation. /[id number]/MODL
[2017-09-28] MEDS: oxyCODONE IR 5 MG TAB PO PRN (15:21)
[2017-09-28] MEDS: POLYETHYLENE GLYCOL 3350 17 GM PKT PO SCH ×2 (15:25→20:56)
--- NOTE | 2017-09-28 16:58 | PDMN ---
Medical Necessity Medical necessity[id number]excison arachnoid cyst
[2017-09-28] MEDS ORDERED: LIDOCAINE 1% 300 MG/30 ML SDV ONE (18:43)
[2017-09-28] MEDS ORDERED: ONDANSETRON 4 MG/2 ML VIAL IVP ONE (19:30)
--- NOTE | 2017-09-28 20:50 | PDRADPN ---
Radiology Procedure Note Date of Procedure: 09/28/17 Radiologist: Khadar Browne Pre-op Diagnosis: Post L2-L5 redo laminectomy and fenestration of arachnoid cysts Post-op Diagnosis: Same Indication: Post-op lumbar drain needed Procedure: L5-S1 lumbar drain placement Finding(s): Lumbar drain placed at L5-S1 via a midline approach, positioned so that catheter tip terminates at T12 mid body. Inf/Abcess present in the surg proc area at time of surgery?: No EBL: Minimal Complications: No immediate
[2017-09-28] MEDS: CYANO/VITAMIN B12 1000 MCG TAB PO SCH (20:57)
[2017-09-28] MEDS: SENNOSIDES/DOCUSATE SODIUM TAB PO SCH (20:57)
[2017-09-28] MEDS: TAMSULOSIN HCL 0.4 MG CAP PO SCH (20:57)
[2017-09-28] MEDS: TERBINAFINE HCL 250 MG TAB PO SCH (20:58)
[2017-09-28] MEDS: PANTOPRAZOLE SODIUM 40 MG TAB PO SCH (20:58)
[2017-09-28] MEDS: FAMOTIDINE 20 MG TAB PO SCH (21:50)
[2017-09-29 05:30] LABS: PLATELET COUNT 147 10^3/uL (150-400)
--- NOTE | 2017-09-29 07:50 | NEUSURGPN ---
Date of Surgery: 09/28/17 Post Op Day: 1 Assessment/Plan: Assessment: 67 yo M sp fenestrastion of L3-5 arachnoid cyst POD#1 Plan: - pain control - continue lumbar drain, total of 5 days. Goal to drain 10-20 cc/hr. Currently drain functioning but output 5-10 cc/hr - HOB flat, bed rest - SELMA drain not suction - continue kc Discussed with Dr. Mota Subjective: Having localized back pain. No LE symptoms. Objective: Awake. Alert. PERRL. EOMI Facial expression symmetrical Muscle strength full at 5/5 Sensation intact Catheter Insertion Date: 09/28/17 - Physician Discussed Patient with : [facility] Physical Exam - Vitals, I&O, Labs I and O 09/28/17 09/29/17 09/30/17 05:59 05:59 05:59 Intake Total 2681 Output Total 2790 10 Balance -109 -10 Weight 86.183 kg Intake: Oral (ml) 1950 IV Infused (ml) 731 NS W/ 20 KCl/L 1,000 ml @ 731 75 mls/hr IV CONT ENMANUEL Rx #:[id number] Output: Urine (ml) 2700 Catheter 2700 CSF Drainage Amount 90 10 Lumbar Drain 90 10 SELMA Drain Output (ml) 0 Posterior Back Praveen 0 Velarde Vital Signs Temp Pulse Resp BP Pulse Ox 37.3 C 83 98 H 131/66 H 18 L 09/28/17 21:00 09/29/17 06:00 09/29/17 06:00 09/29/17 05:00 09/29/17 06:00 Laboratory Results 09/29/17 05:15 09/29/17 05:15 ICD10 Worksheet Patient Problems: Problems Problem Status Onset Acute coronary syndrome Active Angina Active CAD - Coronary arteriosclerosis Active Placement of stent in coronary artery Active Anginal equivalent Acute
[2017-09-29] MEDS: METHOCARBAMOL 750 MG TAB PO PRN ×3 (08:03→22:07)
[2017-09-29] MEDS: oxyCODONE IR 5 MG TAB PO PRN ×5 (08:03→22:08)
[2017-09-29] MEDS: ENOXAPARIN 40 MG/0.4 ML SYR SC SCH (12:48)
--- NOTE | 2017-09-29 12:57 | ASMTCMCOM ---
CM Note CM Note Notes: Patient went for surgical procedure today (fenestration of Arachnoid Cyst L2/L5). Patient is on bed rest for the next 5 days. D/C plan TBD. CM will follow. Date Signed: 09/29/2017 12:56 PM Electronically Signed By:Danna Lehman LCSW
[2017-09-29] MEDS: FAMOTIDINE 20 MG TAB PO SCH (13:07)
[2017-09-29] MEDS: SENNOSIDES/DOCUSATE SODIUM TAB PO SCH ×2 (13:07→22:08)
[2017-09-29] MEDS: POLYETHYLENE GLYCOL 3350 17 GM PKT PO SCH ×3 (13:07→22:08)
[2017-09-29] MEDS: ACETAMINOPHEN 325 MG TAB PO PRN (18:19)
[2017-09-29] MEDS: TERBINAFINE HCL 250 MG TAB PO SCH (22:07)
[2017-09-29] MEDS: TAMSULOSIN HCL 0.4 MG CAP PO SCH (22:07)
[2017-09-29] MEDS: PANTOPRAZOLE SODIUM 40 MG TAB PO SCH (22:07)
[2017-09-29] MEDS: CYANO/VITAMIN B12 1000 MCG TAB PO SCH (22:07)
[2017-09-29] MEDS: diphenhydrAMINE 25 MG CAP PO PRN (22:07)
[2017-09-30] MEDS: diphenhydrAMINE 25 MG CAP PO PRN ×2 (01:50→17:13)
[2017-09-30] MEDS: oxyCODONE IR 5 MG TAB PO PRN ×4 (01:51→20:01)
[2017-09-30] MEDS: METHOCARBAMOL 750 MG TAB PO PRN ×3 (06:00→20:01)
[2017-09-30] MEDS: POLYETHYLENE GLYCOL 3350 17 GM PKT PO SCH ×3 (11:07→20:03)
[2017-09-30] MEDS: SENNOSIDES/DOCUSATE SODIUM TAB PO SCH ×2 (11:07→20:03)
[2017-09-30] MEDS: ENOXAPARIN 40 MG/0.4 ML SYR SC SCH (12:10)
--- NOTE | 2017-09-30 12:58 | NEUSURGPN ---
Date of Surgery: 09/28/17 Post Op Day: 2 Assessment/Plan: Assessment: 67 yo M sp fenestrastion of L3-5 arachnoid cyst POD#2 Plan: - pain control - continue lumbar drain, total of 5 days. Goal to drain 10-20 cc/hr. Currently drain functioning output approx 20 cc/hr - HOB flat, bed rest - SELMA drain not suction - continue kc -Discussed patient with Dr. Valdes -Please call neurosurgery with any questions/concerns Subjective: Patient tolerating HOB flat Objective: Awake. Alert. PERRL. EOMI Facial expression symmetrical Muscle strength full at 5/5 Sensation intact Dressing CDI Neuro Check Frequency: per routine Urinary Catheter in Place: Yes Urinary Catheter Indication: Other (Use Comment) (Patient on bedrest) Catheter Insertion Date: 09/28/17 - Physician Discussed Patient with : Emre Neurosurgery Physical Exam - Vitals, I&O, Labs I and O 09/29/17 09/30/17 10/01/17 05:59 05:59 05:59 Intake Total 2681 1550 Output Total 2790 1569 80 Balance -109 -19 -80 Weight 86.183 kg Intake: Oral (ml) 1950 1250 IV Intake (ml) 300 IV Infused (ml) 731 NS W/ 20 KCl/L 1,000 ml @ 731 75 mls/hr IV CONT ENMANUEL Rx #:[id number] Output: Urine (ml) 2700 1355 Catheter 2700 1355 CSF Drainage Amount 90 189 60 Lumbar Drain 90 189 60 SELMA Drain Output (ml) 0 25 20 Posterior Back Praveen 0 25 20 Velarde Vital Signs Temp Pulse Resp BP Pulse Ox 37.3 C 93 14 140/71 H 98 09/30/17 12:00 09/30/17 12:00 09/30/17 12:00 09/30/17 12:00 09/30/17 12:00 Laboratory Results 09/29/17 05:15 09/29/17 05:15 ICD10 Worksheet Patient Problems: Problems Problem Status Onset Acute coronary syndrome Active Angina Active CAD - Coronary arteriosclerosis Active Placement of stent in coronary artery Active Anginal equivalent Acute
[2017-09-30] MEDS: ONDANSETRON 4 MG/2 ML VIAL IVP PRN (13:04)
[2017-09-30] MEDS: TAMSULOSIN HCL 0.4 MG CAP PO SCH (20:00)
[2017-09-30] MEDS: CYANO/VITAMIN B12 1000 MCG TAB PO SCH (20:00)
[2017-09-30] MEDS: TERBINAFINE HCL 250 MG TAB PO SCH (20:01)
[2017-09-30] MEDS: PANTOPRAZOLE SODIUM 40 MG TAB PO SCH (20:01)
[2017-10-01] MEDS: ONDANSETRON 4 MG/2 ML VIAL IVP PRN ×2 (03:56→19:17)
[2017-10-01] MEDS: METHOCARBAMOL 750 MG TAB PO PRN ×3 (03:57→18:17)
[2017-10-01] MEDS: oxyCODONE IR 5 MG TAB PO PRN ×4 (03:57→19:08)
[2017-10-01] MEDS: ENOXAPARIN 40 MG/0.4 ML SYR SC SCH (07:58)
[2017-10-01] MEDS: SENNOSIDES/DOCUSATE SODIUM TAB PO SCH ×2 (08:00→20:08)
[2017-10-01] MEDS: POLYETHYLENE GLYCOL 3350 17 GM PKT PO SCH ×3 (08:01→20:09)
--- NOTE | 2017-10-01 09:15 | NEUSURGPN ---
Date of Surgery: 09/28/17 Post Op Day: 3 Assessment/Plan: Assessment: 67 yo M sp fenestrastion of L3-5 arachnoid cyst POD#3 Plan: - pain control, patient has some bilateral buttock/hamstring discomfort-likely related to laying flat, will continue to follow - continue lumbar drain, total of 5 days. Goal to drain 10-20 cc/hr. Drain functioning - HOB flat, bed rest - SELMA drain not suction - continue kc -Discussed patient with Dr. Valdes -Please call neurosurgery with any questions/concerns Subjective: Discomfort in bilateral buttock/hamstrings Objective: Awake. Alert. PERRL. EOMI Facial expression symmetrical Muscle strength full at 5/5 Sensation intact Dressing CDI Neuro Check Frequency: per routine Urinary Catheter in Place: Yes Urinary Catheter Indication: Other (Use Comment) (non-ambulatory) Catheter Insertion Date: 09/28/17 - Physician Discussed Patient with : [facility]surgery Physical Exam - Vitals, I&O, Labs I and O 09/30/17 10/01/17 10/02/17 05:59 05:59 05:59 Intake Total 1550 1500 Output Total 1569 1298 33 Balance -19 202 -33 Intake: Oral (ml) 1250 1500 IV Intake (ml) 300 Output: Urine (ml) 1355 1000 Catheter 1355 1000 CSF Drainage Amount 189 243 33 Lumbar Drain 189 243 33 SELMA Drain Output (ml) 25 55 Posterior Back Praveen 25 55 Velarde Vital Signs Temp Pulse Resp BP Pulse Ox 37.0 C 88 18 124/75 H 94 10/01/17 08:00 10/01/17 08:00 10/01/17 08:00 10/01/17 08:00 10/01/17 08:00 Laboratory Results 09/29/17 05:15 09/29/17 05:15 ICD10 Worksheet Patient Problems: Problems Problem Status Onset Acute coronary syndrome Active Angina Active CAD - Coronary arteriosclerosis Active Placement of stent in coronary artery Active Anginal equivalent Acute
[2017-10-01] MEDS ORDERED: ASPIRIN 81 MG CHEWABLE TAB PO SCH (15:45)
--- NOTE | 2017-10-01 16:11 | GCON ---
[f rep st] CONSULTATION CRITICAL CARE CONSULTATION DATE OF CONSULTATION: 10/01/2017 REASON FOR CONSULTATION: Intensive care unit evaluation and medical management following lumbar spine surgery related to an arachnoid cyst. HISTORY: The patient is a pleasant 67-year-old gentleman, who was admitted by neurosurgery for elective surgery related to an arachnoid cyst. He had progressive weakness of the lower extremities. On 09/28, he had redo laminectomies from L2-L5, with resection of a recurrent arachnoid cyst. A lumbar drain was placed. He was returned to the intensive care unit with the drain in place for strict bedrest, flat on his back, for 5 days. He has been doing well with this. He is currently day 3, with 2 more days to go. He had some numbness and tingling in his toes prior to the procedure, but these symptoms have resolved. Strength is difficult to evaluate secondary to his bedrest. He is otherwise doing well. Pain is adequately managed. He has no specific complaints. PAST MEDICAL HISTORY: Remarkable for diabetes type 2, coronary artery disease with a stent placed for angina in 2013, reflux disease, and prostatism. HOME MEDICATIONS: Included Flomax, glipizide, Lamisil, Prevacid, Plavix and aspirin. The latter two were held for a week prior to his surgery. SOCIAL HISTORY: The patient lives alone in [place]. He does have a brother nearby, and a supportive network of friends. 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 He is a never smoker. Significant alcohol is negative. DRUG ALLERGIES: Multiple, these include fluoroquinolones, sertraline, statins, ketorolac, Requip, Celebrex, and HART-2 inhibitors. FAMILY HISTORY: Noncontributory. REVIEW OF SYSTEMS: Negative, except as outlined above. He is not having any chest pain. He previously was followed by Dr. Mercer. He has not had a cardiology followup in some time. PHYSICAL EXAMINATION: GENERAL: Reveals a pleasant gentleman, who is tolerating bedrest quite well. VITAL SIGNS: Blood pressure is 128/67, heart rate 85, and regular. Respiratory rate is 16, on 2 L saturations are 94%. He is afebrile. HEENT: Unremarkable for lymphadenopathy or thyromegaly. CHEST: Clear. HEART: Regular in rate and rhythm. There is a soft systolic murmur, no gallop. ABDOMEN: Soft and nontender. Bowel sounds present. A Tam catheter is in place. He requests that this stays in place. A lumbar drain is present along with a Praveen-Velarde drain. The incision is dressed and was not examined. EXTREMITIES: Unremarkable for edema, cords, or tenderness. ALEJANDRO hose are in place. DATABASE: Laboratory: Previous white blood cell count was 8700, hematocrit 41 , platelets 147,000. Basic metabolic panel has been within normal limits, with the exception of elevated glucoses in the 150-180 range. ASSESSMENT: 1. Status post lumbar surgery for resection of an arachnoid cyst. He is doing well postoperatively. A drain is in place. He needs to be kept flat for the next 2 days. Plans, recommendations per neurosurgery. 2. Type 2 diabetes. Glucoses are adequately controlled on glipizide. Insulin is not required. 3. History of coronary artery disease. He had a stent 2013, no problem since. He is off aspirin and Plavix. Aspirin can be restarted if acceptable to neurosurgery. 4. History of other medical problems as outlined above. Stable. PLAN AND RECOMMENDATIONS: The patient will be kept in the intensive care unit on bedrest. Current medications will be continued. Baby aspirin will be initiated if neurosurgery agrees. Further plans and recommendations will be made based on his progress over the next 12 to 24 hours. /[id number]/MODL MTDD
[2017-10-01] MEDS: DIAZEPAM 5 MG TAB PO PRN (19:17)
[2017-10-01] MEDS: PANTOPRAZOLE SODIUM 40 MG TAB PO SCH (20:07)
[2017-10-01] MEDS: TERBINAFINE HCL 250 MG TAB PO SCH (20:07)
[2017-10-01] MEDS: CYANO/VITAMIN B12 1000 MCG TAB PO SCH (20:08)
[2017-10-01] MEDS: TAMSULOSIN HCL 0.4 MG CAP PO SCH (20:09)
[2017-10-02] MEDS: oxyCODONE IR 5 MG TAB PO PRN ×5 (01:14→22:55)
[2017-10-02] MEDS: METHOCARBAMOL 750 MG TAB PO PRN ×4 (01:14→22:56)
[2017-10-02 05:40] LABS: PLATELET COUNT 190 10^3/uL (150-400)
[2017-10-02] MEDS: SENNOSIDES/DOCUSATE SODIUM TAB PO SCH ×4 (08:17→20:57)
[2017-10-02] MEDS: POLYETHYLENE GLYCOL 3350 17 GM PKT PO SCH ×5 (08:17→20:57)
--- NOTE | 2017-10-02 08:29 | NEUSURGPN ---
Assessment/Plan: Assessment: 67 yo M sp fenestrastion of L3-5 arachnoid cyst POD#4 Plan: - pain control, patient has some bilateral buttock/hamstring/hip flexor discomfort-likely related to laying flat, will continue to follow - continue lumbar drain, total of 5 days (Monday) Goal to drain 10-20 cc/hr. Drain functioning intermittently - HOB flat, bed rest - SELMA drain not suction - continue kc -Hold all anticoagulants in preparation for drain removal tomorrow -Discussed patient with Dr. Valdes -Please call neurosurgery with any questions/concerns Subjective: Sore from laying on back, no other complaints Objective: Awake. Alert. PERRL. EOMI Facial expression symmetrical Muscle strength full at 5/5 Sensation intact Dressing CDI Neuro Check Frequency: per routine Urinary Catheter in Place: Yes Urinary Catheter Indication: Other (Use Comment) (bedrest) Catheter Insertion Date: 09/28/17 - Physician Discussed Patient with : Emre Neurosurgery Physical Exam - Vitals, I&O, Labs I and O 10/01/17 10/02/17 10/03/17 05:59 05:59 05:59 Intake Total 1500 1250 Output Total 1298 1225 23 Balance 202 25 -23 Intake: Oral (ml) 1500 1250 Output: Urine (ml) 1000 935 Catheter 1000 935 CSF Drainage Amount 243 277 23 Lumbar Drain 243 277 23 SELMA Drain Output (ml) 55 13 Posterior Back Praveen 55 13 Velarde Vital Signs Temp Pulse Resp BP Pulse Ox 37.3 C 81 13 111/65 97 10/02/17 08:00 10/02/17 08:00 10/02/17 08:00 10/02/17 08:00 10/02/17 08:00 Laboratory Results 10/02/17 05:30 10/02/17 05:30 ICD10 Worksheet Patient Problems: Problems Problem Status Onset Acute coronary syndrome Active Angina Active CAD - Coronary arteriosclerosis Active Placement of stent in coronary artery Active Anginal equivalent Acute
--- NOTE | 2017-10-02 09:45 | PDINTPN ---
Gameplay Programmer Progress Note Assessment/Plan: Assessment/Plan: * Status post lumbar surgery for section of arachnoid cyst -drain out tomorrow * Non insulin-dependent diabetes-blood sugars okay * Coronary artery disease with history of status * Gastroesophageal reflux disease * Pain-controlled * PT/OT * Nutrition Subjective: Resting comfortably. No current pain. Objective: Vital Signs Temp Pulse Resp BP Pulse Ox 37.3 C 81 13 111/65 97 10/02/17 08:00 10/02/17 08:00 10/02/17 08:00 10/02/17 08:00 10/02/17 08:00 Laboratory Results 10/02/17 05:30 10/02/17 05:30 10/01/17 10/02/17 10/03/17 05:59 05:59 05:59 Intake Total 1500 1250 Output Total 1298 1225 23 Balance 202 25 -23 - Time Spent With Patient Time Spent With Patient: 25 min of time spent with patient, over 1/2 involved with coordination of care or counseling Physical Exam - Physical Exam General Appearance: alert EENT: PERRL/EOMI, normal ENT inspection Neck: non-tender Respiratory: chest non-tender, lungs clear, normal breath sounds Cardiac/Chest: normal peripheral pulses, regular rate, rhythm Abdomen: normal bowel sounds, non-tender, soft Male Genitalia: deferred Rectal: deferred Skin: normal color, warm/dry Extremities: non-tender Neuro/Psych: alert ICD10 Worksheet Patient Problems: Problems Problem Status Onset Acute coronary syndrome Active Angina Active CAD - Coronary arteriosclerosis Active Placement of stent in coronary artery Active Anginal equivalent Acute
[2017-10-02] MEDS: DIAZEPAM 5 MG TAB PO PRN (14:16)
[2017-10-02] MEDS: ONDANSETRON 4 MG/2 ML VIAL IVP PRN (14:22)
[2017-10-02] MEDS: TERBINAFINE HCL 250 MG TAB PO SCH (20:57)
[2017-10-02] MEDS: PANTOPRAZOLE SODIUM 40 MG TAB PO SCH (20:57)
[2017-10-02] MEDS: TAMSULOSIN HCL 0.4 MG CAP PO SCH (20:57)
[2017-10-02] MEDS: CYANO/VITAMIN B12 1000 MCG TAB PO SCH (20:57)
[2017-10-03] MEDS: DIAZEPAM 5 MG TAB PO PRN (00:46)
[2017-10-03] MEDS ORDERED: DIAZEPAM 5 MG/ML 1 ML SYR ONE (01:07)
[2017-10-03] MEDS ORDERED: DIAZEPAM 5 MG/ML 1 ML SYR IVP ONE (01:15)
[2017-10-03] MEDS: oxyCODONE IR 5 MG TAB PO PRN ×4 (04:54→21:20)
[2017-10-03] MEDS: METHOCARBAMOL 750 MG TAB PO PRN ×3 (04:54→21:20)
--- NOTE | 2017-10-03 07:06 | SOAPPROG ---
SID Progress Note Assessment/Plan: Assessment: Assessment: 67 yo M sp fenestrastion of L3-5 arachnoid cyst POD#5 Plan: - pain control, patient has some bilateral buttock/hamstring/hip flexor discomfort-likely related to laying flat, will add Lidoderm - continue lumbar drain clamped this AM - HOB flat, bed rest - SELMA drain not suction - continue kc -Hold all anticoagulants in preparation for drain removal tomorrow -Discussed patient with Dr. Valdes -Please call neurosurgery with any questions/concerns 10/03/17 07:03 Subjective: awake, alert, pain increased early this AM in bilat hips. denies numbness, tingling or weakness Objective: Vital Signs Temp Pulse Resp BP Pulse Ox 36.8 C 80 13 126/73 H 97 10/02/17 20:00 10/03/17 06:00 10/03/17 06:00 10/03/17 06:00 10/03/17 06:00 Laboratory Results 10/02/17 05:30 10/02/17 05:30 10/02/17 10/03/17 10/04/17 05:59 05:59 05:59 Intake Total 1250 925 Output Total 1225 1503 8 Balance 25 -578 -8 Neuro: ODONNELL to command, sens +LT Dressing: removed and no leak from incision LD: slow drainage. Clamped this AM ICD10 Worksheet Patient Problems: Problems Problem Status Onset Acute coronary syndrome Active Angina Active CAD - Coronary arteriosclerosis Active Placement of stent in coronary artery Active Anginal equivalent Acute
[2017-10-03] MEDS: LIDOCAINE 4%/MENTHOL 1% PATCH TD SCH (07:24)
[2017-10-03] MEDS: SENNOSIDES/DOCUSATE SODIUM TAB PO SCH ×2 (08:35→21:08)
[2017-10-03] MEDS: POLYETHYLENE GLYCOL 3350 17 GM PKT PO SCH ×3 (08:35→21:08)
[2017-10-03] MEDS ORDERED: LIDOCAINE 1% 300 MG/30 ML SDV ONE (08:57)
--- NOTE | 2017-10-03 10:41 | SOAPPROG ---
SOAP Progress Note Assessment/Plan: Assessment: Acupuncture requested for pain management. L sided sciatic pain post-surgical. Patient has been supine for seven days. Plan: Titanium Acupuncture Semi Permanent (ASP) auricular needles approved by MARYANN Vasquez and Dr. Andrea. ASP needles will be retained three days to three weeks and will come out on their own or can be removed with a tweezer. ASP needles are [place] Acupuncture Auricular (BFA) protocol for pain control. Bilateral: Cingular [place], [place], [place] 2, [place], Goode Men. Right Arm: YRANN 1 - 5 (meridian follows bicep tendon) x 8 simeon: Balance BL meridian to relax paraspinal muscles and reduce spinal pain. Reduce pain in flexion and extension. SJ 10 - 14 (meridian follows tricep) x 6 simeon: Balance GB merdian. Reduce pain in side-bending. Shoulder images hip to relax buttock and trochanter. Ling Gu: Extra point to relax lower back, lumbar and sacral area (added ten minutes after treatment started to relax buttock). [place]: Extra point to relax lower back, lumbar and sacral area (added ten minutes after treatment started to relax buttock). Left Hand: Fritz Michelle: (located in webbing between fingers), reduce hip pain and spasm. Ling Gu: Extra point to relax lower back, lumbar and sacral area. Balance BL meridian, reduce pain in flexion and extension. [place]: Extra point to relax lower back, lumbar and sacral area. Balance BL meridian, reduce pain in flexion and extension. So Monica Ding: Extra point to reduce lumbar pain (located between third and fourth metacarpal). SI 3: Master point of DU meridian.Relaxes the spine. Decrease pain in flexion and extension. Reduce inflammation and improve blood flow. Balance BL meridian. SI 4: Decrease pain in flexion and extension. Reduce inflammation and improve blood flow. Balance BL meridian. GB 44: (Located at nailbed of 4th metatarsal), decrease acute pain on GB meridian (meridian running through buttock). Reduce spasm, improve blood flow, reduce inflammation. BL 67: (Located at nailbed of 5th metatarsal), decrease acute pain on GB meridian (meridian running through paraspinal muslcles). Reduce spasm, improve blood flow, reduce inflammation. Central: DU 26: (located on philtrum on face), reduces acute low back pain. Reduce inflammation. Improve blood flow. DU 20 - 23: Reduce tightness, spasm, and pain in spine. Si Goode Wilver: Relax sacrum, relieve buttock spasm, improve sleep, reduce anxiety. [place] retained forty minutes. 10/03/17 10:42 Objective: Vital Signs Temp Pulse Resp BP Pulse Ox 36.6 C 79 14 116/73 92 10/03/17 08:00 10/03/17 10:00 10/03/17 10:00 10/03/17 10:00 10/03/17 10:00 Laboratory Results 10/02/17 05:30 10/02/17 05:30 10/02/17 10/03/17 10/04/17 05:59 05:59 05:59 Intake Total 1250 925 Output Total 1225 1503 8 Balance 25 -578 -8 ICD10 Worksheet Patient Problems: Problems Problem Status Onset Acute coronary syndrome Active Angina Active CAD - Coronary arteriosclerosis Active Placement of stent in coronary artery Active Anginal equivalent Acute
--- NOTE | 2017-10-03 11:00 | PDINTPN ---
Bereavement Counselor Progress Note Assessment/Plan: Assessment/Plan: * Status post lumbar surgery for section of arachnoid cyst -drain out today * Non insulin-dependent diabetes-blood sugars okay * Coronary artery disease with history of status * Gastroesophageal reflux disease * Pain-controlled * PT/OT * Nutrition * Disposition-likely transfer to medical surgical floor today Subjective: Comfortable. Pain tolerable. Good spirits. Objective: Vital Signs Temp Pulse Resp BP Pulse Ox 36.6 C 79 14 116/73 92 10/03/17 08:00 10/03/17 10:00 10/03/17 10:00 10/03/17 10:00 10/03/17 10:00 Laboratory Results 10/02/17 05:30 10/02/17 05:30 10/02/17 10/03/17 10/04/17 05:59 05:59 05:59 Intake Total 1250 925 Output Total 1225 1503 8 Balance 25 -578 -8 - Time Spent With Patient Time Spent With Patient: 25 min of time spent with patient, over 1/2 involved with coordination of care or counseling. Physical Exam - Physical Exam General Appearance: WD/WN, alert, no apparent distress EENT: PERRL/EOMI Neck: non-tender, full range of motion, supple, normal inspection Respiratory: chest non-tender, lungs clear, normal breath sounds Cardiac/Chest: normal peripheral pulses, regular rate, rhythm Abdomen: normal bowel sounds, non-tender, soft Male Genitalia: deferred Rectal: deferred Skin: normal color, warm/dry Extremities: non-tender Neuro/Psych: no motor/sensory deficits, alert, normal mood/affect, oriented x 3 ICD10 Worksheet Patient Problems: Problems Problem Status Onset Acute coronary syndrome Active Angina Active CAD - Coronary arteriosclerosis Active Placement of stent in coronary artery Active Anginal equivalent Acute
[2017-10-03] MEDS: ONDANSETRON 4 MG/2 ML VIAL IVP PRN ×2 (14:05→18:29)
--- NOTE | 2017-10-03 16:24 | ASMTCMCOM ---
CM Note CM Note Notes: Patient continues to lay flat, drain out today to begin working w/Therapy. CM to follow for discharge needs. Date Signed: 10/03/2017 04:24 PM Electronically Signed By:Caren Charles LCSW
[2017-10-03] MEDS: CYANO/VITAMIN B12 1000 MCG TAB PO SCH (21:07)
[2017-10-03] MEDS: PANTOPRAZOLE SODIUM 40 MG TAB PO SCH (21:07)
[2017-10-03] MEDS: PATCH REMOVAL 1 EA PATCH TD SCH (21:08)
[2017-10-03] MEDS: TAMSULOSIN HCL 0.4 MG CAP PO SCH (21:08)
[2017-10-03] MEDS: TERBINAFINE HCL 250 MG TAB PO SCH (21:39)
[2017-10-04] MEDS: DIAZEPAM 5 MG TAB PO PRN ×2 (00:43→22:15)
[2017-10-04] MEDS: oxyCODONE IR 5 MG TAB PO PRN ×2 (00:44→23:58)
--- NOTE | 2017-10-04 07:37 | NEUSURGPN ---
Date of Surgery: 09/28/17 Post Op Day: 6 Assessment/Plan: Assessment: 67 yo M s/p fenestrastion of L3-5 arachnoid cyst POD #6 Plan: -pain control, patient has mainly lower back pain this am. He had some bilateral buttock/hamstring/hip flexor discomfort-likely related to laying flat , we added Lidoderm patch for this as well -will adjust pain medications to get longer control as he is still on IV pain medications-will need to find a PO equivalent to replace the IV meds -lumbar drain and SELMA removed on 10/03 -advance activities -no positional HAs -kc removed at 0400-still waiting to void -CDI -Discussed patient with Dr. Valdes -Please call neurosurgery with any questions/concerns Subjective: Awake and alert. NAD, Eating/drinking and voiding. No f/c/n/v/d. Pt with continued lower back pain Objective: Awake and alert. PERRLA/EOMI no droop CN 2-12 grossly intact ODONNELL to command, sens +LT CDI Neuro Check Frequency: per routine Urinary Catheter in Place: No Catheter Insertion Date: 09/28/17 - Physician Discussed Patient with : Emre Patient Seen by : Emre Neurosurgery Physical Exam - Vitals, I&O, Labs I and O 10/03/17 10/04/17 10/05/17 05:59 05:59 05:59 Intake Total 925 1250 Output Total 1503 808 Balance -578 442 Intake: Oral (ml) 925 1250 IV Intake (ml) 0 Output: Urine (ml) 1235 800 Catheter 1235 800 CSF Drainage Amount 254 8 Lumbar Drain 254 8 SELMA Drain Output (ml) 14 Posterior Back Praveen 14 Velarde Other: Number of Stools Catheter 1 Vital Signs Temp Pulse Resp BP Pulse Ox 36.4 C 88 18 145/85 H 93 10/03/17 23:33 10/03/17 23:33 10/03/17 23:33 10/03/17 23:33 10/03/17 23:33 Laboratory Results 10/02/17 05:30 10/02/17 05:30 ICD10 Worksheet Patient Problems: Problems Problem Status Onset Acute coronary syndrome Active Angina Active CAD - Coronary arteriosclerosis Active Placement of stent in coronary artery Active Anginal equivalent Acute
[2017-10-04] MEDS: ACETAMINOPHEN 325 MG TAB PO PRN ×3 (07:52→22:15)
[2017-10-04] MEDS: LIDOCAINE 4%/MENTHOL 1% PATCH TD SCH ×4 (07:54→08:33)
[2017-10-04] MEDS: POLYETHYLENE GLYCOL 3350 17 GM PKT PO SCH ×3 (08:04→23:05)
[2017-10-04] MEDS: SENNOSIDES/DOCUSATE SODIUM TAB PO SCH ×2 (08:04→23:05)
[2017-10-04] MEDS: morphINE SR 15 MG TAB PO SCH (09:27)
[2017-10-04] MEDS: ONDANSETRON 4 MG/2 ML VIAL IVP PRN ×2 (09:33→14:00)
--- NOTE | 2017-10-04 11:34 | ASMTCMCOM ---
CM Note CM Note Notes: Reviewed chart regarding discharge plan of care, pt's progress. Pt is POD #6, lumbar drain is out. Per MD notes, pt to advance activities. PT/OT evals still pending. Discharge needs remain unclear at this time. CM will continue to follow. Current Discharge Plan: To be determined Date Signed: 10/04/2017 11:33 AM Electronically Signed By:Nani Ma RN
[2017-10-04] MEDS ORDERED: NS 1,000 ML IV SCH (15:30)
[2017-10-04] MEDS: PATCH REMOVAL 1 EA PATCH TD SCH ×2 (17:16→22:52)
[2017-10-04] MEDS: TERBINAFINE HCL 250 MG TAB PO SCH (22:14)
[2017-10-04] MEDS: CYANO/VITAMIN B12 1000 MCG TAB PO SCH (22:15)
[2017-10-04] MEDS: PANTOPRAZOLE SODIUM 40 MG TAB PO SCH (22:15)
[2017-10-04] MEDS: TAMSULOSIN HCL 0.4 MG CAP PO SCH (22:15)
[2017-10-05] MEDS: METHOCARBAMOL 750 MG TAB PO PRN ×2 (00:52→09:51)
[2017-10-05] MEDS: morphINE SR 15 MG TAB PO SCH ×4 (05:49→22:05)
[2017-10-05] MEDS: ACETAMINOPHEN 325 MG TAB PO PRN (06:51)
[2017-10-05] MEDS: DIAZEPAM 5 MG TAB PO PRN ×2 (06:51→17:53)
--- NOTE | 2017-10-05 08:16 | NEUSURGPN ---
Date of Surgery: 09/28/17 Post Op Day: 7 Assessment/Plan: Assessment: 67 yo M sp fenestrastion of L3-5 arachnoid cyst POD#7 Plan: -pain control, patient has mainly lower back pain this am. He had some bilateral buttock/hamstring/hip flexor discomfort-likely related to laying flat , we added Lidoderm patch for this as well -patient still having bilateral buttock/hamstring pain-equal. Need to continue long acting pain medication -lumbar drain and SELMA removed on 10/03 -advance activities -no positional HAs -kc placed due to retention, may need to dc with kc -Continue Flomax -Dressing CDI -Discussed patient with Dr. Valdes -Please call neurosurgery with any questions/concerns Subjective: Patient resting, continued bilateral buttock/hamstring pain Objective: Awake and alert. PERRLA/EOMI no droop CN 2-12 grossly intact ODONNELL to command, sens +LT Dressing CDI Neuro Check Frequency: per routine Urinary Catheter in Place: Yes Urinary Catheter Indication: Acute Urinary Retention Catheter Insertion Date: 10/05/17 - Physician Discussed Patient with DrLitzy: Emre Neurosurgery Physical Exam - Vitals, I&O, Labs I and O 10/04/17 10/05/17 10/06/17 05:59 05:59 05:59 Intake Total 1250 1300 Output Total 808 1405 500 Balance 442 -105 -500 Intake: Oral (ml) 1250 1300 Output: Urine (ml) 800 1405 500 Catheter 800 1250 500 Urinal 155 CSF Drainage Amount 8 Lumbar Drain 8 Other: Number of Voids Urinal 1 Number of Stools Catheter 1 Bladder Scan Volume (ml) Catheter 322 Vital Signs Temp Pulse Resp BP Pulse Ox 36.9 C 94 16 135/84 H 90 L 10/05/17 07:09 10/05/17 07:09 10/05/17 07:09 10/05/17 07:09 10/05/17 07:09 Laboratory Results 10/02/17 05:30 10/02/17 05:30 ICD10 Worksheet Patient Problems: Problems Problem Status Onset Acute coronary syndrome Active Angina Active CAD - Coronary arteriosclerosis Active Placement of stent in coronary artery Active Anginal equivalent Acute
[2017-10-05] MEDS: oxyCODONE IR 5 MG TAB PO PRN ×2 (09:46→16:38)
[2017-10-05] MEDS: LIDOCAINE 4%/MENTHOL 1% PATCH TD SCH ×2 (09:50→10:06)
[2017-10-05] MEDS: SENNOSIDES/DOCUSATE SODIUM TAB PO SCH ×2 (10:06→22:06)
[2017-10-05] MEDS: POLYETHYLENE GLYCOL 3350 17 GM PKT PO SCH ×3 (10:06→22:06)
--- NOTE | 2017-10-05 11:32 | ASMTCMCOM ---
CM Note CM Note Notes: PT now recommending SNF. Pt having difficult time with stairs, pain and he lives in [place] alone. Met w/pt and he is open to SNF, would like to go to [facility] as he has been here in past. Referral sent to , waiting to hear back. Date Signed: 10/05/2017 11:31 AM Electronically Signed By:Elmira Simon RN
[2017-10-05] MEDS ORDERED: HYDROmorphONE/DILAUDID 1 MG/ML INJ IVP ONE (11:56)
[2017-10-05] MEDS ORDERED: GADOBUTROL 10 ML VIAL IVP ONE (12:06)
[2017-10-05] MEDS ORDERED: DIAZEPAM 5 MG TAB PO ONE (12:15)
[2017-10-05] MEDS: ONDANSETRON 4 MG/2 ML VIAL IVP PRN (12:23)
[2017-10-05] MEDS ORDERED: HYDROmorphone HCL/NS 0.5 MG/ML SYR IVP ONE (14:00)
[2017-10-05] MEDS: CYANO/VITAMIN B12 1000 MCG TAB PO SCH (21:16)
[2017-10-05] MEDS: TAMSULOSIN HCL 0.4 MG CAP PO SCH (21:16)
[2017-10-05] MEDS: PANTOPRAZOLE SODIUM 40 MG TAB PO SCH (21:16)
[2017-10-05] MEDS: TERBINAFINE HCL 250 MG TAB PO SCH (21:16)
[2017-10-05] MEDS: PATCH REMOVAL 1 EA PATCH TD SCH ×2 (22:05→22:06)
[2017-10-06] MEDS: ACETAMINOPHEN 325 MG TAB PO PRN (05:46)
[2017-10-06] MEDS: DIAZEPAM 5 MG TAB PO PRN (05:46)
--- NOTE | 2017-10-06 08:36 | SOAPPROG ---
SOAP Progress Note Assessment/Plan: Assessment/Plan: 67 yo M sp fenestration of L3-5 arachnoid cyst POD#8 ongoing buttock and left posterior thigh pain. Post op lumbar MRI reviewed by Dr. Valdes. No significant canal or foraminal stenosis. Nerve root clumping present consistent with arachnoiditis. Plan: - no new intervention planned based on recent lumbar MRI. Recommend continue PT/ OT. -lumbar drain and SELMA removed on 10/03 -Needs to be cleared by PT/OT for DC home or rehab needs -no positional HAs -kc placed due to retention, may need to dc with kc -Continue Flomax -Dressing CDI -Please call neurosurgery with any questions/concerns Subjective: sleeping, wakes easily and states he is doing ok, but has left buttock and posterior thigh pain and ongoing urinary retention requiring kc. Objective: Vital Signs Temp Pulse Resp BP Pulse Ox 37.3 C 94 16 162/86 H 91 L 10/05/17 23:04 10/05/17 23:04 10/05/17 23:04 10/05/17 23:04 10/05/17 23:04 Laboratory Results 10/02/17 05:30 10/02/17 05:30 10/05/17 10/06/17 10/07/17 05:59 05:59 05:59 Intake Total 1300 700 Output Total 1405 1700 Balance -105 -1000 Neuro: ODONNELL, sens +LT abulatory Incision: CDI ICD10 Worksheet Patient Problems: Problems Problem Status Onset Acute coronary syndrome Active Angina Active CAD - Coronary arteriosclerosis Active Placement of stent in coronary artery Active Anginal equivalent Acute
[2017-10-06] MEDS ORDERED: HYOSCYAMINE SULFATE 0.375 MG TAB.SR PO SCH (09:00)
[2017-10-06] MEDS: morphINE SR 15 MG TAB PO SCH ×2 (09:23→11:29)
[2017-10-06] MEDS: LIDOCAINE 4%/MENTHOL 1% PATCH TD SCH ×2 (09:23→09:40)
[2017-10-06] MEDS: POLYETHYLENE GLYCOL 3350 17 GM PKT PO SCH (09:23)
[2017-10-06] MEDS: SENNOSIDES/DOCUSATE SODIUM TAB PO SCH (09:23)
[2017-10-06] MEDS: METHOCARBAMOL 750 MG TAB PO PRN (10:04)
[2017-10-06 15:01] VITALS: BP 136/83
--- NOTE | 2017-10-06 15:43 | PDIAF ---
- Diagnosis Diagnosis: Arachnoid cyst - lumbar spine, status post fenestration Code Status: Full Code - Medication Management Discharge Medications: Medications to Continue on Transfer Clopidogrel Bisulfate [Plavix (*)] 75 mg PO HS 06/10/17 [Last Taken 09/20/17] glipiZIDE [Glipizide ER] 10 mg PO HS 06/10/17 [Last Taken 09/27/17 12:00] Terbinafine HCl [LamISIL 250 MG (*)] 250 mg PO HS 08/29/17 [Last Taken 09/28/17 00:00] Cyanocobalamin [Vitamin B12 (*)] 1,000 mcg PO HS 09/06/17 [Last Taken 09/25/17] Lansoprazole [Prevacid] 15 mg PO HS 09/06/17 [Last Taken 09/27/17 12:00] Tamsulosin HCl [Flomax 0.4 MG (*)] 0.4 mg PO HS 09/28/17 [Last Taken 09/27/17] Hyoscyamine Sulfate [Hyoscyamine Sulfate ER] 0.375 mg PO DAILY 10/01/17 [Last Taken Unknown] Acetaminophen [Tylenol 325mg (*)] 650 mg PO Q6HRS PRN tab 10/06/17 [Last Taken Unknown] Lidocaine 4%/Menthol 1% [Icy Hot Lidocaine/Menthol 4%/1% Patch (*)] 1 patch TD DAILY patch 10/06/17 [Last Taken Unknown] Lidocaine 4%/Menthol 1% [Icy Hot Lidocaine/Menthol 4%/1% Patch (*)] 2 patch TD DAILY patch 10/06/17 [Last Taken Unknown] Methocarbamol [Robaxin 750 mg (*)] 750 mg PO QID PRN tab 10/06/17 [Last Taken Unknown] Naloxone HCl [Narcan] 0 mg IVP PRN PRN inj 10/06/17 [Last Taken Unknown] Ondansetron HCl Pf [Zofran 4 mg Inj (*)] 4 mg IVP Q4HRS PRN vial 10/06/17 [ Last Taken Unknown] Ondansetron Odt [Zofran Odt 4 mg (*)] 4 - 8 mg PO Q6HRS PRN tab 10/06/17 [Last Taken Unknown] Patch Removal 1 ea TD DAILY21 patch 10/06/17 [Last Taken Unknown] Patch Removal 1 ea TD DAILY@1900 patch 10/06/17 [Last Taken Unknown] Polyethylene Glycol 3350 [Miralax 17 gm (*)] 17 gm PO TID pkt 10/06/17 [Last Taken Unknown] Sennosides/Docusate Sodium [Senokot-S] 1 - 2 tab PO BID tab 10/06/17 [Last Taken Unknown] diphenhydrAMINE [Benadryl 25 MG (*)] 25 - 50 mg PO Q6HRS PRN cap 10/06/17 [ Last Taken Unknown] diphenhydrAMINE [Benadryl Injection] 25 - 50 mg IVP Q6HRS PRN inj 10/06/17 [ Last Taken Unknown] morphINE SR [Ms Contin/Oramorph 15 mg (*)] 15 mg PO BID tab 10/06/17 [Last Taken Unknown] oxyCODONE IR [Oxycodone Ir (*)] 5 - 10 mg PO Q4HRS PRN tab 10/06/17 [Last Taken Unknown] Discharge Medications: Refer to the Discharge Home Medication list for PRN reason. - Orders Services needed: Registered Nurse, Physical Therapy, Occupational Therapy Isolation Type: None Diet Recommendation: no restrictions on diet Diet Texture: Regular Texture Diet Tam: Yes (Please arrange outpatient follow up with Urology in approximately 1 week) Wound Care Instructions: evaluate incision daily for drainage, redness or pain Sutures/Alessia Site: remove 10-14 days from date of surgery Activity/Weight Bearing Restrictions: no bending, twisting or lifting over 10 lbs x 6 weeks from date of surgery Equipment: LSO when out of bed Additional Instructions: no bending, twisting or lifting over 10 lbs x 6 weeks wear LSO when Out of bed Follow up with Dr. Valdes in 10-14 days for post op appt. Call [phone] to confirm post op appt. - Follow Up Care Current Providers and Referrals: NONE *PRIMARY CARE P,. [Primary Care Provider] -
--- NOTE | 2017-10-06 16:22 | ASMTCMCOM ---
CM Note CM Note Notes: Dc order received. Spoke with RN & pt; agreeable to dc poc. Spoke with Chuck, at [facility]; confirmed bed availability. Paperwork faxed; confirmed received. Chuck to arrange transport. Pt & RN updated. No other needs at this time. Date Signed: 10/06/2017 04:21 PM Electronically Signed By:Kerry Miller RN
--- NOTE | 2017-10-06 17:45 | ASDISCHSUM ---
Discharge Information Plan Status:SNF Medically Cleared to Leave:10/06/2017 Discharge Date:10/06/2017 05:02 PM D/C Disposition:[facility] Facility ADT D/C Disposition:[facility] Facility Projected Discharge Date:10/06/2017 11:00 AM Transportation at D/C:Wheelchair Van Discharge Delay Reason: Follow-Up Date:10/06/2017 11:00 AM Discharge Slot: Final Diagnosis: Placement Information Referral Type:*Assisted/SNF Referral ID:[id number] Provider Name:[facility] Address 1:[address] Address 2: City:[place] Selection Factors: State:[place] Patient Contact Information Contact Name:RIDDHI Relationship:Other Address: Work Phone: City: [facility] Phone: [facility]/Zip Code:[place] Email: Financial Information Financial Class:Medicare Primary Plan Desc:MEDICARE INPATIENT Primary Plan Number:[id number] Secondary Plan Desc:[employer]/MDR SUPPLEMENT Secondary Plan Number:[id number] Assessment Information [facility] Initial CM Assessment Living Arrangements What is your living Answers: Alone arrangement? Who do you live with? Type Of Residence What kind of residence do Answers: House you live in? Discharge Plan Comments Coordination Status Comments Notes: Patient is a 67yo single male who was admitted for a fenestration of Arachnoid Cyst with Dr. Salcedo. PT/OT have been ordered. D/C plan TBD. CM will follow. Date Signed: 09/28/2017 01:05 PM Electronically Signed By:Danna Lehman LCSW [facility] Length of stay for Answers: 7-13 days current admission Acuity / Level of Answers: Yes Care: Did the patient have an inpatient admission? Comorbidities - select Answers: Coronary Artery Disease all that apply Diabetes (uncontrolled or controlled) # of Emergency department Answers: 1-2 visits in the last 6 months Social determinants Answers: Mental health diagnosis (anxiety, depression, pers onality disorders, etc.) Score: 15 Date Signed: 10/06/2017 04:24 PM Electronically Signed By:Kerry Miller RN [facility] CM Progress Note CM Note CM Note Notes: Patient went for surgical procedure today (fenestration of Arachnoid Cyst L2/L5). Patient is on bed rest for the next 5 days. D/C plan TBD. CM will follow. Date Signed: 09/29/2017 12:56 PM Electronically Signed By:Danna Lehman LCSW [facility] CM Progress Note CM Note CM Note Notes: Patient continues to lay flat, drain out today to begin working w/Therapy. CM to follow for discharge needs. Date Signed: 10/03/2017 04:24 PM Electronically Signed By:Caren Charles LCSW [facility] CM Progress Note CM Note CM Note Notes: Reviewed chart regarding discharge plan of care, pt's progress. Pt is POD #6, lumbar drain is out. Per MD notes, pt to advance activities. PT/OT evals still pending. Discharge needs remain unclear at this time. CM will continue to follow. Current Discharge Plan: To be determined Date Signed: 10/04/2017 11:33 AM Electronically Signed By:Nani Ma RN [facility] CM Progress Note CM Note CM Note Notes: PT now recommending SNF. Pt having difficult time with stairs, pain and he lives in [place] alone. Met w/pt and he is open to SNF, would like to go to [facility] as he has been here in past. Referral sent to , waiting to hear back. Date Signed: 10/05/2017 11:31 AM Electronically Signed By:Elmira Simon RN [facility] CM Progress Note CM Note CM Note Notes: Dc order received. Spoke with RN & pt; agreeable to dc poc. Spoke with Chuck, at [facility]; confirmed bed availability. Paperwork faxed; confirmed received. Chuck to arrange transport. Pt & RN updated. No other needs at this time. Date Signed: 10/06/2017 04:21 PM Electronically Signed By:Kerry Miller RN Intervention Information Intervention Type:*IM-Signed Date of Service:10/06/2017 02:40 PM Patient Type:Inpatient Staff Member:Angelica Herrera Hours: Discipline: Severity: Comment:
[2017-10-07] MEDS ORDERED: LIDOCAINE 4%/MENTHOL 1% PATCH TD SCH (09:00)
== END 2017-10-06 17:02 | DRG 30 ==
LOC: F3N 06:44 → F2N 11:39 → F3N 10-03 18:40
PROVIDERS: ADMIT Neurological Surgery; ATTEND Neurological Surgery
PROC: 00BY0ZZ Excision of Lumbar Spinal Cord, Open Approach (ICD-10-PCS; principal; 2017-09-28 08:30)
PROC: 009U30Z Drainage of Spinal Canal with Drainage Device, Percutaneous Approach (ICD-10-PCS; 2017-09-29)
DX: G96.19 Other disorders of meninges, not elsewhere classified (principal); R33.9 Retention of urine, unspecified; M43.26 Fusion of spine, lumbar region; M51.36 Other intervertebral disc degeneration, lumbar region; E11.9 Type 2 diabetes mellitus without complications; I25.10 Atherosclerotic heart disease of native coronary artery without angina pectoris; Z95.5 Presence of coronary angioplasty implant and graft; K21.9 Gastro-esophageal reflux disease without esophagitis
CPT/HCPCS: 97116-GP; 97161-GP; 97166-GO; 97530-GO; 97535-GO; A9585; C1729; G8978-GP-CI; G8979-GP-CH; G8987-GO-CJ; G8988-GO-CI; J0171; J0690; J1100; J1170; J1200; J1650; J2250; J2270; J2405; J2704; J3010; J3360

== ENCOUNTER → 2018-03-06 | Outpatient (CLI) | payer OTHER, MEDICARE ==
[~2018-03-06] MED LIST changes: -GADOBUTROL 10 ML VIAL IVP ONE; +IOPAMIDOL (ISOVUE-M 200) 20 ML VIAL ONE; +IOPAMIDOL (ISOVUE-M 300) 15 ML VIAL ONE; +LIDOCAINE 1% 300 MG/30 ML SDV ONE
[2018-03-06 10:30] LABS: INR 1.04 (0.83-1.16); PROTIME(PATIENT) 13.8 SEC (12.0-15.0)
== END ==
LOC: FIMAGING 08:56
PROVIDERS: ATTEND Physician Assistant Surgical
PROC: B02BYZZ Computerized Tomography (CT Scan) of Spinal Cord using Other Contrast (ICD-10-PCS; principal; 2018-03-06)
DX: G96.19 Other disorders of meninges, not elsewhere classified (principal); G95.89 Other specified diseases of spinal cord; M48.02 Spinal stenosis, cervical region; M50.322 Other cervical disc degeneration at C5-C6 level; M51.34 Other intervertebral disc degeneration, thoracic region; M43.16 Spondylolisthesis, lumbar region; M48.07 Spinal stenosis, lumbosacral region
CPT/HCPCS: 62305; 72126; 72129; 72132; 72270; Q9967; Q9966

== ENCOUNTER 2018-09-11 13:26 | Emergency (ER) | payer OTHER, MEDICARE ==
--- NOTE | 2018-09-11 14:03 | EDPHY ---
H & P Stated Complaint: elevated lead levels/work exposure Time Seen by Provider: 09/11/18 14:02 HPI/ROS: CHIEF COMPLAINT: Recurrent lead toxicity HISTORY OF PRESENT ILLNESS: The patient presents to the ED with recurrent lead toxicity. 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 He was noted to have an elevated level level of 16. His primary care provider informed him that typically treatment would not be considered until level of 40. The patient was reviewing information online saw some evidence that there may be benefit of treating down to a level 10. The patient does have multiple chronic complaints including neuropathy. He does complain of some mild acute bilateral back pain. He denies any chest pain, difficulty breathing or palpitations. The patient denies any hematuria. He denies any fever, cough or congestion. He denies any infectious symptoms. The patient has received chelation treatment in the past for level of 20. REVIEW OF SYSTEMS: A comprehensive 10 point review of systems is otherwise negative aside from elements mentioned in the history of present illness. Source: Patient - Personal History Current Tetanus Diphtheria and Acellular Pertussis (TDAP): Yes Tetanus Vaccine Date: 2013 - Medical/Surgical History Hx Asthma: No Hx Chronic Respiratory Disease: No Hx Diabetes: Yes Hx Cardiac Disease: Yes Hx Renal Disease: Yes Hx Cirrhosis: No Hx Alcoholism: No Hx HIV/AIDS: No Hx Splenectomy or Spleen Trauma: No Other PMH: PMH: Stents x4, DM II, ventral hernia repair x3, cholecystectomy, knee surgery x2, r elbow, appy, L4 ARACHNOID CYST, LAMINECTOMY TS-L1, kidney stones x 11, anxiety,diverticulitis - Social History Smoking Status: Never smoked - Physical Exam Exam: General Appearance: Alert, no distress Eyes: Pupils equal and round no pallor or injection ENT, Mouth: Mucous membranes moist Respiratory: There are no retractions, lungs are clear to auscultation Cardiovascular: Regular rate and rhythm Gastrointestinal: Abdomen is soft and nontender, no masses, bowel sounds normal Neurological: A&O, normal motor function, normal sensory exam, normal cranial nerves Skin: Warm and dry, no rashes Musculoskeletal: Neck is supple nontender Extremities: symmetrical, full range of motion Constitutional: Initial Vital Signs Temperature (C) 36.5 C 09/11/18 13:32 Heart Rate 92 09/11/18 13:32 Respiratory Rate 17 09/11/18 13:32 Blood Pressure 151/109 H 09/11/18 13:32 O2 Sat (%) 95 09/11/18 13:32 O2 Delivery Mode Room Air Allergies/Adverse Reactions: levofloxacin [Levofloxacin] Allergy (Severe, Verified 09/11/18 13:30) Other-Enter Comments sertraline [Sertraline] Allergy (Severe, Verified 09/11/18 13:30) Other-Enter Comments Efzidok-Ukw-Ijy Reductase Inhibitor Allergy (Severe, Verified 09/11/18 13:30) Other-Enter Comments ketorolac [Ketorolac] Allergy (Mild, Verified 09/11/18 13:30) Rash ropinirole HCl [From Requip] Allergy (Unknown, Verified 09/11/18 13:30) Other-Enter Comments celecoxib [From Celebrex] Allergy (Verified 09/11/18 13:30) "DID NOT AGREE WITH ME" Quinolones Allergy (Verified 09/11/18 13:30) CONVULSIVE SPASMS HART 2 INHIBITORS Allergy (Unknown, Uncoded 09/28/17 07:10) Other-Enter Comments fluoroquinolones Allergy (Unknown, Uncoded 03/02/18 18:41) CONVULSIVE SPASMS Home Medications: Medication Instructions Recorded Clopidogrel Bisulfate [Plavix (*)] 75 mg PO HS 06/10/17 glipiZIDE [Glipizide ER] 10 mg PO BID 06/10/17 Cyanocobalamin [Vitamin B12 (*)] 1,000 mcg PO HS 09/06/17 Lansoprazole [Prevacid] 15 mg PO HS 09/06/17 Tamsulosin HCl [Flomax 0.4 MG (*)] 0.4 mg PO HS 09/28/17 Acetaminophen [Tylenol 325mg (*)] 650 mg PO Q6HRS PRN tab 10/06/17 Methocarbamol [Robaxin 750 mg (*)] 750 mg PO QID PRN tab 10/06/17 Ondansetron Odt [Zofran Odt 4 mg 4 - 8 mg PO Q6HRS PRN tab 10/06/17 (*)] Alfuzosin HCl ER 10 mg PO DAILY 03/02/18 Aspirin 81mg (*) 81 mg PO DAILY 03/02/18 Bentyl 10 MG (*) 10 mg PO HS 03/02/18 Flonase Allergy Relief 1 - 2 spray IH PRN PRN 03/02/18 Nattokinase 2,000 PO DAILY 03/02/18 Medical Decision Making ED Course/Re-evaluation: I reviewed the patient's outpatient blood work which included a slightly elevated CPK of 390 and an elevated level level of 16.1. This test was performed on September 06. The patient's vital signs are stable. He is neurologically intact. A CBC and chemistry panel have been ordered in the emergency department. CBC and chemistry panel are normal. I did discuss the case with poison Control and they firm that the patient is not a candidate for chelation therapy. They have recommended patient work with his safety belt installer or [employer] to determine the source of his exposure. They do recommend a repeat blood test in 1 month. They also are happy to see the patient in clinic provided the patient get a referral from his PCP. The patient has been given the number for the outpatient clinic. The patient will be discharged from the emergency department at this point time. Differential Diagnosis: Differential diagnosis considered includes renal failure, dehydration, metabolic derangement, lead toxicity, stroke - Data Points Laboratory Results: Laboratory Results 09/11/18 14:00 09/11/18 14:00 09/11/18 09/11/18 14:00 14:00 WBC 6.73 10^3/uL 10^3/uL (3.80-9.50) RBC 5.42 10^6/uL 10^6/uL (4.40-6.38) Hgb 17.2 g/dL g/dL (13.7-17.5) Hct 49.7 % % (40.0-51.0) MCV 91.7 fL fL (81.5-99.8) MCH 31.7 pg pg (27.9-34.1) MCHC 34.6 g/dL g/dL (32.4-36.7) RDW 13.8 % % (11.5-15.2) Plt Count 238 10^3/uL 10^3/uL (150-400) MPV 9.0 fL fL (8.7-11.7) Neut % (Auto) 75.6 % H % (39.3-74.2) Lymph % (Auto) 13.4 % L % (15.0-45.0) Brooks % (Auto) 8.8 % % (4.5-13.0) Eos % (Auto) 0.7 % % (0.6-7.6) Baso % (Auto) 0.6 % % (0.3-1.7) Nucleat RBC Rel Count 0.0 % % (0.0-0.2) Absolute Neuts (auto) 5.09 10^3/uL 10^3/uL (1.70-6.50) Absolute Lymphs (auto) 0.90 10^3/uL L 10^3/uL (1.00-3.00) Absolute Monos (auto) 0.59 10^3/uL 10^3/uL (0.30-0.80) Absolute Eos (auto) 0.05 10^3/uL 10^3/uL (0.03-0.40) Absolute Basos (auto) 0.04 10^3/uL 10^3/uL (0.02-0.10) Absolute Nucleated RBC 0.00 10^3/uL 10^3/uL (0-0.01) Immature Gran % 0.9 % % (0.0-1.1) Immature Gran # 0.06 10^3/uL 10^3/uL (0.00-0.10) Sodium 136 mEq/L mEq/L (135-145) Potassium 4.6 mEq/L mEq/L (3.5-5.2) Chloride 106 mEq/L mEq/L (97-110) Carbon Dioxide 21 mEq/l L mEq/l (22-31) Anion Gap 9 mEq/L mEq/L (6-14) BUN 15 mg/dL mg/dL (7-23) Creatinine 1.1 mg/dL mg/dL (0.7-1.3) Estimated GFR > 60 Glucose 173 mg/dL H mg/dL (70-100) Calcium 9.2 mg/dL mg/dL (8.5-10.4) Departure - Departure Disposition: Home, Routine, Self-Care Clinical Impression: Lead toxicity Condition: Good Instructions: Lead Poisoning (ED) Additional Instructions: 1. Please have your primary care physician contact the toxicology clinic at [phone] for an outpatient evaluation 2. There is no indication for chelation at this time 3. Poison Control recommends having your blood level checked once a month. You should also work with your safety belt installer or [employer] to attempt and identify the source of your exposure and figure out what steps can be undertaken to mitigate future exposures. Referrals: Sue Marie MD [Primary Care Provider] - As per Instructions
[2018-09-11 14:14] LABS: PLATELET COUNT 238 10^3/uL (150-400)
[2018-09-11 15:09] VITALS: BP 123/86
== END 2018-09-11 15:09 | disposition home or self-care (01) ==
DX: M54.9 Dorsalgia, unspecified (principal); T56.0X1A Toxic effect of lead and its compounds, accidental (unintentional), initial encounter; Y92.019 Unspecified place in single-family (private) house as the place of occurrence of the external cause